=== PATIENT | male | born 1965 | race Caucasian/White ===

== ENCOUNTER 2018-03-01 14:15 | Observation (INO) ==
--- NOTE | 2018-03-01 14:22 | Emergency Department Note ---
Disposition Clinical Impression: Generalized weakness, Chronic kidney disease, stage III (moderate), Hyperkalemia Disposition: Admitted As Inpatient Condition: Fair Referrals: Wilfredo Vicente, [employer] [Advanced Practice Nurse] - Forms: ED Satisfaction Letter Weakness HPI - General Chief complaint: ED Weakness Stated complaint: weakness and tingling all over Time Seen by Provider: 03/01/18 14:25 Source: patient, family Mode of arrival: private vehicle Limitations: no limitations Nursing Notes Reviewed: Yes Vital Signs Reviewed: Yes - History of Present Illness HPI Narrative: Patient reports that he has been having some intermittent episodes of weakness, shaking and tingling over the course of 2-3 weeks. The tingling involves his face, hands and feet bilaterally. The symptoms have been worse since yesterday he is noted he has had or difficulty getting up and walking around today. He denies any localized weakness. He has had some shortness of breath and a cough. States has occasional wheezing and the cough is nonproductive. Denies any fevers, chest pain or abnormal palpitations. He volunteers he does have atrial fibrillation and his heart rate is irregular. He has had a little more swelling of his legs and states he has some "fluid buildup". He does have history of CHF as well as chronic kidney disease. He did sustain a small cut to his left forefoot about a week ago area he has been bandaging this but has not been able to see the area. He states he has neuropathy. He has not had increased swelling or redness or significant discharge. He denies any urinary frequency or dysuria. He denies abdominal pain, nausea, vomiting or diarrhea. States had constipation "a couple weeks ago". He denies a recent change in his medicines. He states he is diabetic and his blood sugars have been running "high". His blood sugars have been to the 500s in the last 2-3 days but he states his blood sugar was 303 at noon today. Pt Subjective Complaint: generalized weakness/fatigue, paresthesias Onset (ago): week(s) Duration: intermittent Location: generalized Migration: none Pain Severity: none If pain, quality: tingling Improves with: none Worsens with: exertion Associated symptoms: Reports: shortness of breath. Denies: chest pain, confusion, dark stools, diaphoresis, dysuria, easy bruising, fever/chills, headaches, loss of appetite, nausea/vomiting, myalgias, rash, syncope - Related Data Home Medications Medication Instructions Recorded Confirmed Ferrous Sulfate 325 mg PO BID 07/11/15 03/01/18 Lisinopril [Zestril] 20 mg PO DAILY 09/04/15 03/01/18 Aspirin [Lo-Dose Aspirin EC] 81 mg PO QAM 07/11/16 03/01/18 Atorvastatin [Lipitor] 40 mg PO HS 07/11/16 03/01/18 Insulin ASPART [Novolog Flexpen] 20 unit SQ TIDWM 07/11/16 03/01/18 Albuterol Sulfate [Ventolin Hfa] 2 puff IH Q4H PRN 10/07/16 03/01/18 Metoprolol XL (24 HR) Succ [Toprol 25 mg PO BID 08/22/17 03/01/18 Xl] Rivaroxaban [Xarelto] 15 mg PO DAILY 08/22/17 03/01/18 Furosemide [Lasix] 40 mg PO BID 08/23/17 03/01/18 Cetirizine HCl [Zyrtec] 10 mg PO DAILY 09/07/17 03/01/18 Insulin Glargine,Hum.rec.anlog 10 unit SQ QAM 03/01/18 03/01/18 [Basaglar Kwikpen U-100] Previous Rx's Medication Instructions Recorded Diltiazem CD (24hr) [Cardizem CD] 120 mg PO DAILY #30 tab 07/07/17 Isosorbide MONOnitrate (24 HR) 30 mg PO DAILY #30 tab 07/07/17 [Imdur] Polyethylene Glycol 3350 [MiraLAX] 17 gm PO DAILY #30 powd.pack 08/26/17 Allergies Allergy/AdvReac Type Severity Reaction Status Date / Time No Known Allergies Allergy Verified 03/01/18 14:16 All systems ED: reviewed and negative except as stated. Past Medical History - Past Medical History Attestation: Yes The following information was validated with the patient. Source: patient, old records reviewed, obtained from family, nursing notes reviewed Medical history: Reports: atrial fibrillation, CHF, COPD, coronary artery disease, CVA, diabetes, GERD, hyperlipidemia, hypertension, myocardial infarction, renal disease, other (Morbid obesity) Surgical history: Reports: coronary bypass (CABG), orthopedic, other ( Osteomyelitis with toe amputation), other Psychiatric history: Reports: anxiety, depression - Social History Smoking Status: Former smoker Smokeless Tobacco Status: Yes Alcohol use: Reports: none Drug use: Reports: none Physical Exam - General Limitations: physical limitation General appearance: alert, in no apparent distress - Head Head exam: atraumatic, normocephalic, normal inspection - Eye Eye exam: Present: normal appearance, PERRL, EOMI. Absent: scleral icterus, conjunctival injection, nystagmus - ENT ENT exam: normal exam, normal oropharynx, mucous membranes moist - Neck Neck exam: Present: normal inspection, full ROM, trachea midline - Chest Chest inspection: Present: normal inspection, symmetric chest wall rise - Respiratory Respiratory exam: Present: normal lung sounds bilaterally, wheezes, other ( Diminished breath sounds). Absent: respiratory distress, accessory muscle use, prolonged expiratory phase - Cardiovascular Cardiovascular exam: Present: bradycardia, irregular rhythm, normal heart sounds. Absent: JVD - Abdominal Exam Abdominal exam: Present: soft, Non-Tender, normal bowel sounds. Absent: tenderness, distention, guarding, rebound, rigidity - Extremities Exam Extremities exam: Present: full ROM, normal capillary refill, pedal edema, other (Left foot has a less than 1 cm superficial wound without any secondary inflammation, tenderness or swelling.). Absent: tenderness, calf tenderness - Expanded Lower Extremity Exam Neurovascular/Tendon exam: Present: normal capillary refill. Absent: motor deficit, sensory deficit, tendon deficit Gait: observed and normal - Back Exam Back exam: Present: normal inspection, full ROM. Absent: tenderness, CVA tenderness (R), CVA tenderness (L), vertebral tenderness - Neurological Exam Neurological exam: Present: alert, oriented X3, CN II-XII intact, normal gait. Absent: motor sensory deficit - Psychiatric Psychiatric exam: Present: normal affect, normal mood - Skin Skin exam: Present: warm, dry, intact, normal color. Absent: rash, cyanosis, diaphoresis, erythema, pallor Course Course Narrative: 1535: With the patient's renal insufficiency and hyperkalemia, IV fluids been initiated, Kayexalate ordered orally as well as D50, insulin and sodium bicarbonate IV. A page has been placed to Dr. Mcdaniel to see if he would feel comfortable observing the patient this facility or if you have recommend transfer to tertiary care with the possibility for nephrology or other consultation. 1550: Care has been discussed with Dr. Mcdaniel. He would like a repeat potassium drawn a couple hours and will observe him at this facility if it has decreased to under 6.5. He acknowledges that the patient does have chronic renal insufficiency with a creatinine of 2-2.5. He will likely not need acute nephrology consultation unless his potassium is not improving. The patient has been written for a repeat basic metabolic panel at 6 PM. He understands his ultimate disposition will depend on the results of the that testing. 1845: The patient's repeat potassium is down. Orders have been coordinated for his admission to this facility. Vital Signs Temperature 97.9 F 03/01/18 14:22 Pulse Rate 51 03/01/18 14:22 Respiratory Rate 22 03/01/18 14:22 Blood Pressure 159/64 03/01/18 14:22 O2 Sat by Pulse Oximetry 98 03/01/18 14:22 Temperature 97.9 F 03/01/18 14:22 Pulse Rate 58 03/01/18 18:19 Respiratory Rate 18 03/01/18 18:19 Blood Pressure 168/56 03/01/18 18:19 O2 Sat by Pulse Oximetry 97 03/01/18 18:19 Oxygen Delivery Oxygen Delivery Nasal Cannula Weakness - Differential Diagnosis Differential Diagnosis: Likely: anemia, sepsis/infection, dehydration, medication effect, metabolic - Medical Records Medical records reviewed: Yes I reviewed the patient's medical records. Patient admitted August 22 to September 04 with the following hospital course: Hospital course: Mr. Hughes is a 51 year old male He has a PMH of CHFpEF, CKD III, RUFINO on CPAP, Afib on Xarelto, DM, CAD, Obesity He was admitted 13 days ago for management of sepsis, MSSA bacetremia, Left 4th toe necrosis secondary to MSSA infection on his diabetic ulcer Today, he is POD 11 Patient reported that he had an ulcer on the bottom of his left foot being treated in wound care clinic. He had a cast on his foot for this ulcer, but missed a couple of appointments and left the cast on longer than intended. The cast came off earlier this week per the patient. The day prior to admission he noticed his fourth toe on his left foot was purple, and he thought it was bruised. The day of admission, the foot started draining a foul-smelling purulent drainage and had black necrotic tissue as well. He also reported of fever/chills but denies any pain in his left foot In the ER at [facility], he was found to have leukocytosis (WBC 17.5) and febrile; temperature of 101.3. Foot x-ray showed soft tissue gas about the fourth distal phalanx, with questionable erosive changes of the fourth metatarsal head. He was admitted to [facility] medical floor for further management and evaluation. During patients hospital stay, Gen. surgery was consulted and proceeded with urgent amputation of fourth toe as well as metatarsal head area. During surgery patient was found to have a necrotic left fourth toe in addition to osteomyelitis in the left metatarsal. As a result, the left fourth toe was amputated and the metatarsal head (osteomyelitis) was resected. Patient was continued with IV antibiotic therapy and was later transitioned to oral Levaquin Today seen at bedside,He has no new complains SNF has been recommended and he now has been cleared for discharge His sepsis resolved as he has been afebrile for >7 days, his leukocytosis is persistent and fluctuates, but patient has no peripheral stigmata of infection His repeat blood culture 09/02 is preliminary negative He was followed by surgery and will be following with Dr. Rodarte as out-patient He needs at least 10 more days of doxycycline po bid His kidney function has been ay baseline and his DM is better controlled His other chronic medical conditions are stable - Lab Data Lab results reviewed: Yes I reviewed the patient's lab results. Result diagrams: 03/01/18 14:48 03/01/18 18:14 Lab Results 03/01/18 03/01/18 03/01/18 Range/Units 14:30 14:48 14:48 WBC 13.0 H (4.3-11.1) K/mcL RBC 4.87 (4.19-5.50) M/mcL Hgb 12.2 L (12.9-16.9) g/dL Hct 38.6 (37.5-50.1) % MCV 79.3 L (83.0-100.0) fL MCH 25.1 L (28.0-33.3) pg MCHC 31.6 (31.6-35.5) g/dL RDW 15.3 H (11.5-14.5) % Plt Count 261 (140-400) K/mcL MPV 9.8 (9.4-12.4) fL Immature Gran % 0.5 (0-4) % Seg Neutrophils % 81.5 % Lymphocytes % 11.3 % Monocytes % 5.6 % Eosinophils % 0.8 % Basophils % 0.3 % Neutrophils # 10.6 H (1.6-8.9) K/mcL Lymphocytes # 1.5 (0.6-4.6) K/mcL Monocytes # 0.7 (0.0-1.3) K/mcL Eosinophils # 0.1 (0.0-0.6) K/mcL Basophils # 0.0 (0.0-0.2) K/mcL Sodium 131 L (136-145) mEq/L Potassium 7.0 H* (3.5-5.1) mEq/L Chloride 98 (98-107) mEq/L Carbon Dioxide 24 (23-29) mEq/L BUN 64 H (6-20) mg/dL Creatinine 3.06 H (0.70-1.30) mg/dL Est GFR ( Amer) 26 L (> 60) Est GFR (Non-Af Amer) 21 L (> 60) BUN/Creatinine Ratio 21 (6-26) Glucose 309 H (70-105) mg/dL POC Glucose 286 H (68-89) mg/dL Calculated Osmolality 302 H (280-300) Calcium 9.0 (8.6-10.3) mg/dL Troponin I 0.03 (< 0.04) ng/mL B-Natriuretic Peptide (Less than 100) pg/mL 03/01/18 03/01/18 Range/Units 14:48 18:14 WBC (4.3-11.1) K/mcL RBC (4.19-5.50) M/mcL Hgb (12.9-16.9) g/dL Hct (37.5-50.1) % MCV (83.0-100.0) fL MCH (28.0-33.3) pg MCHC (31.6-35.5) g/dL RDW (11.5-14.5) % Plt Count (140-400) K/mcL MPV (9.4-12.4) fL Immature Gran % (0-4) % Seg Neutrophils % % Lymphocytes % % Monocytes % % Eosinophils % % Basophils % % Neutrophils # (1.6-8.9) K/mcL Lymphocytes # (0.6-4.6) K/mcL Monocytes # (0.0-1.3) K/mcL Eosinophils # (0.0-0.6) K/mcL Basophils # (0.0-0.2) K/mcL Sodium 135 L (136-145) mEq/L Potassium 5.2 H D (3.5-5.1) mEq/L Chloride 101 (98-107) mEq/L Carbon Dioxide 24 (23-29) mEq/L BUN 63 H (6-20) mg/dL Creatinine 2.81 H (0.70-1.30) mg/dL Est GFR ( Amer) 29 L (> 60) Est GFR (Non-Af Amer) 24 L (> 60) BUN/Creatinine Ratio 22 (6-26) Glucose 280 H (70-105) mg/dL POC Glucose (68-89) mg/dL Calculated Osmolality 308 H (280-300) Calcium 8.8 (8.6-10.3) mg/dL Troponin I (< 0.04) ng/mL B-Natriuretic Peptide 41 (Less than 100) pg/mL - Radiology Data Radiology results reviewed: Yes I reviewed the patient's radiology results. Single view chest x-ray is performed. This does not demonstrate evidence for infiltrate, effusion, pneumothorax, foreign body or heart failure. The cardiac silhouette is enlarged. I do not see abnormality to the osseous structures of the chest. This is on my interpretation. - EKG Data EKG attestation: Yes I reviewed and interpreted this EKG. EKG shows normal: axis, intervals, QRS complexes, ST-T waves Rate: bradycardia (49) Rhythm: A.Fib [place]/QRS: IVCD Interpretation: no acute changes, other (Intrafibrillation with slow ventricular response.) Critical Care Time Critical Care Time: Yes Total Critical Care Time: 65 Attestation: As this patient did present with signs and symptoms of potential life- threatening illness requiring my urgent intervention, total critical care time in this patient's care has been 65 minutes, not withstanding separately reportable procedures.
[2018-03-01 14:53] LABS: Basophils % 0.3 %; Eosinophils # 0.1 K/mcL (0.0-0.6); Eosinophils % 0.8 %; Hematocrit 38.6 % (37.5-50.1); Hemoglobin 12.2 g/dL (12.9-16.9); Immature Granulocytes % 0.5 % (0-4); Lymphocytes # 1.5 K/mcL (0.6-4.6); Lymphocytes % 11.3 %; Mean Corpuscular HGB Conc 31.6 g/dL (31.6-35.5); Mean Corpuscular Hemoglobin 25.1 pg (28.0-33.3); Mean Corpuscular Volume 79.3 fL (83.0-100.0); Mean Platelet Volume 9.8 fL (9.4-12.4); Monocytes # 0.7 K/mcL (0.0-1.3); Monocytes % 5.6 %; Neutrophils # 10.6 K/mcL (1.6-8.9); Platelet Count 261 K/mcL (140-400); Red Blood Count 4.87 M/mcL (4.19-5.50); Red Cell Distribution Width 15.3 % (11.5-14.5); Segmented Neutrophils % 81.5 %
--- NOTE | 2018-03-01 14:59 | Electrocardiograph Report ---
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
[2018-03-01 15:20] LABS: Troponin I 0.03 ng/mL (< 0.04)
[2018-03-01] MEDS ORDERED: *HR* Dextrose 50 % in Water (Syg) 50 ML SYRINGE IVP ONE (15:31)
[2018-03-01] MEDS ORDERED: 0.9 % Sodium Chloride 1,000 ML IVC ONE (15:31)
[2018-03-01] MEDS ORDERED: 0.9 % Sodium Chloride 1,000 ML IVC SCH (18:00)
[2018-03-01 18:40] LABS: Calcium 8.8 mg/dL (8.6-10.3); Potassium 5.2 mEq/L (3.5-5.1)
[2018-03-01] MEDS ORDERED: *HR* Dextrose 50 % in Water (Syg) 50 ML SYRINGE IVP PRN (20:31)
[2018-03-01] MEDS ORDERED: D5% in Water 1,000 ML IVC PRN (20:31)
[2018-03-01] MEDS ORDERED: Dextrose Gel 15 GM PO PRN ×2 (20:31)
[2018-03-01] MEDS ORDERED: Naloxone 0.4 MG/ML INJ IVP PRN (20:31)
[2018-03-01] MEDS ORDERED: Metoprolol XL (24 HR) Succ 50 MG TAB.ER.24H PO SCH (21:00)
[2018-03-01] MEDS: 0.9 % Sodium Chloride 1,000 ML IVC SCH (21:48)
[2018-03-01] MEDS: Furosemide 40 MG TABLET PO SCH (21:57)
[2018-03-01] MEDS: Ipratropium/Albuterol Neb 3 ML IH SCH (22:43)
[2018-03-02] MEDS: Ipratropium/Albuterol Neb 3 ML IH SCH ×2 (04:07→10:01)
[2018-03-02 04:35] LABS: Calcium 8.9 mg/dL (8.6-10.3); Potassium 4.8 mEq/L (3.5-5.1)
[2018-03-02] MEDS: 0.9 % Sodium Chloride 1,000 ML IVC SCH (05:14)
[2018-03-02] MEDS ORDERED: Loratadine 10 MG TABLET PO SCH (09:00)
[2018-03-02] MEDS: Insulin DETEMIR 100 UNIT/ML X5UNITS SQ SCH (09:13)
[2018-03-02] MEDS: Insulin LISPRO 300 UNITS/3 ML VIAL SQ SCH ×6 (09:13→16:47)
[2018-03-02] MEDS: Metoprolol XL (24 HR) Succ 25 MG TAB.ER.24H PO SCH ×2 (09:14→21:31)
[2018-03-02] MEDS: Isosorbide MONOnitrate (24 HR) 30 MG TAB.ER.24H PO SCH (09:14)
[2018-03-02] MEDS: Furosemide 40 MG TABLET PO SCH (09:14)
[2018-03-02] MEDS: Aspirin Enteric Coated 81 MG Tablet PO SCH (09:14)
[2018-03-02] MEDS: Diltiazem CD (24hr) 120 MG CAPSULE PO SCH (09:14)
[2018-03-02] MEDS: Lisinopril 20 MG TABLET PO SCH (09:14)
--- NOTE | 2018-03-02 12:29 | Internal Med History&Physical ---
Date of Encounter: 03/02/18 Time of Encounter: 11:35 Assessment and Plan (1) Generalized weakness Current visit: Yes Status: Acute Suspect multifactorial etiology. Will order PT and OT evaluation. (2) Hyperkalemia Current visit: Yes Status: Acute Now resolved after treatment in emergency room. Continue to monitor labs. (3) Anemia Current visit: Yes Status: Acute We will order anemia testing in a.m. Qualifiers: Anemia type: unspecified type Qualified Code(s): D64.9 - Anemia, unspecified (4) Acute kidney injury superimposed on CKD Current visit: No Status: Acute Will give IV fluids and hold Lasix. Monitor renal indices. (5) Atrial fibrillation Current visit: No Status: Chronic Continue Xarelto. Qualifiers: Atrial fibrillation type: paroxysmal Qualified Code(s): I48.0 - Paroxysmal atrial fibrillation (6) Type 2 diabetes mellitus Current visit: No Status: Acute Hemoglobin A1c was 7.0% on 07/05/2017. We will recheck in a.m. Continue Levemir/Lantus and Humalog SSI. 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 We will recheck in a.m. (8) Obstructive sleep apnea Current visit: No Status: Chronic Continue CPAP at bedtime. Internal Medicine - H&P: HPI Chief complaint: Weakness Admitted From: Emergency Dept Plans for Post Hospital Care: Home History of present illness: Mr. Hughes is a 52 year old male who came to emergency room reporting a two-week history of intermittent weakness and tingling sensation in his arms and legs. It had lasted generally only a few minutes on previous occurrences but lasted at least 30 minutes the day of admission. He was evaluated in emergency room and found to have acute on chronic renal failure with hyperkalemia. He was admitted to [facility] for ongoing care needs. He denies history of large distribution strokes or seizures. He has right foot drop but denies other diagnosed neurologic problems. He has used a walker for ambulation for approximately 3 months following his most recent toe amputation and states he has not had a fall. Past Med Surg Social Fam HX - Past Medical History Medical history: atrial fibrillation, CHF, COPD, coronary artery disease, CVA, diabetes, GERD, hyperlipidemia, hypertension, myocardial infarction, renal disease, other Psychiatric history: anxiety, depression - Past Surgical History Surgical History: coronary bypass (CABG), orthopedic, other, other - Social History Smoking Status: Former smoker Smokeless Tobacco Status: Yes Alcohol use: none Drug use: none - Family History Mother Family Member Ethnicity: Non- Living Status: Hx Family Cardiac Disorders: Yes (HD, HTN, CHF) Hx Family Respiratory Disorders: Yes (COPD) Father Family Member Ethnicity: Non- Living Status: Hx Family Cardiac Disorders: Yes (HD, HTN, ND) Brother Family Member Ethnicity: Non- Living Status: Still Living Hx Family Cardiac Disorders: Yes (HD) Hx Family Respiratory Disorders: Yes (COPD) Sister Family Member Ethnicity: Non- Living Status: Still Living Hx Family Endocrine Disorder: Yes (T2DM) Internal Medicine - H&P: Meds Ferrous Sulfate 325 mg PO BID 07/11/15 [History] Lisinopril [Zestril] 20 mg PO DAILY 09/04/15 [History] Aspirin [Lo-Dose Aspirin EC] 81 mg PO QAM 07/11/16 [History] Atorvastatin [Lipitor] 40 mg PO HS 07/11/16 [History] Insulin ASPART [Novolog Flexpen] 20 unit SQ TIDWM 07/11/16 [History] Albuterol Sulfate [Ventolin Hfa] 2 puff IH Q4H PRN 10/07/16 [History] Diltiazem CD (24hr) [Cardizem CD] 120 mg PO DAILY #30 tab 07/07/17 [Rx] Isosorbide MONOnitrate (24 HR) [Imdur] 30 mg PO DAILY #30 tab 07/07/17 [Rx] Metoprolol XL (24 HR) Succ [Toprol Xl] 25 mg PO BID 08/22/17 [History] Rivaroxaban [Xarelto] 15 mg PO DAILY 08/22/17 [History] Furosemide [Lasix] 40 mg PO BID 08/23/17 [History] Polyethylene Glycol 3350 [MiraLAX] 17 gm PO DAILY #30 powd.pack 08/26/17 [Rx] Cetirizine HCl [Zyrtec] 10 mg PO DAILY 09/07/17 [History] Insulin Glargine,Hum.rec.anlog [Basaglar Elisabetikpen U-100] 10 unit SQ QAM 03/01/18 [History] 3 Allergy/AdvReac Type Severity Reaction Status Date / Time No Known Allergies Allergy Verified 03/01/18 14:16 All Systems PM: A 10-system review of systems was performed and is negative for pertinent findings except as documented above in the HPI. Review of systems: Gen.: His weight has decreased from 141.747 kg October 2014 to 136.078 kg on admission now. Cardiovascular: He has history of hypertension and known ASHD with 4 vessel CABG approximately 2008. He had a Regadenoson EST September 2013 which showed LVEF of 60% and no evidence of TID. Perfusion image was positive for a small mildly intense reversible inferior defect which was treated medically. Echocardiogram 07/05/2017 showed LVEF of 60-65% with indeterminate LV diastolic function and no significant valvular abnormality. The interventricular septum and posterior wall thickness measurements were 1.35 and 1.30 cm respectively. He was found to have atrial fibrillation on June 2017 [facility] hospitalization. He was placed on Xarelto. There is no history of DVT or pulmonary embolus Respiratory: He smoked from age [age] up to 1 pack per day. He does not have known chronic lung disease. He has RUFINO and uses CPAP at bedtime. GI: He has occasional GERD. 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 He denies other kidney bladder prostate disorders Neurologic: As per history of present illness Endocrine: He was diagnosed with DM 2 at age 20. He has hyperlipidemia but no known thyroid disease Hematology/oncology: He has chronic anemia. He denies internal malignancies or blood disorders Psychiatric: He denies anxiety depression or other mental health issues [place] skeletal: He has DJD and gout. He had right hip fracture with replacement 2005. He has had surgical amputation of the fourth toes on both feet. The right fourth toe and adjacent metatarsal head had osteomyelitis which was cured by the surgical resection. - Constitutional Vitals: Temp Pulse Resp BP Pulse Ox 98.4 F 76 29 131/56 92 03/02/18 11:42 03/02/18 11:42 03/02/18 11:42 03/02/18 11:42 03/02/18 10:01 Exam: Gen.: He is a well-developed obese male lying in bed who appears in no severe distress HEENT: Head is atraumatic and normocephalic. Eyes: EOMI. There is no scleral icterus. Mouth: Mucosa is moist. Neck: Supple and nontender. There is no thyromegaly or adenopathy noted. Heart: Regular without murmurs gallops or ectopics Lungs: No wheezes or crackles are heard. Abdomen: Soft and nontender. No masses or guarding are noted. Extremities: He has surgically absent fourth toes bilaterally. The surgical incisions are well-healed. He has a small puncture type wound on the mid line left foot near the third metatarsal head. He has a fissure of the lateral right foot on the lateral/plantar area which shows no drainage or significant erythema. He has 1+ edema of the anterior soto bilaterally. Neurologic: Mental status: He is talkative and a good historian. Cranial nerves : Smile is symmetric. Forehead wrinkles bilaterally. Tongue protrudes midline. EOMI. Motor: There is no pronator drift. Plantar flexion strength at the ankles is symmetric bilaterally. He has right footdrop and cannot dorsiflex the right foot. Left foot dorsiflexes with normal strength. Cerebellar: Finger to nose is intact bilaterally. Skin: Warm and dry Internal Med - H&P Results - Labs CBC & Chem 7: 03/01/18 14:48 03/02/18 03:40 Labs: BMP 03/02/18 03:40 Sodium 137 Potassium 4.8 Chloride 102 Carbon Dioxide 26 BUN 55 H Creatinine 2.33 H Glucose 216 H Calcium 8.9
[2018-03-02] MEDS: *HR* Rivaroxaban 15 MG TABLET PO SCH (16:46)
[2018-03-03] MEDS: Albuterol 2.5 MG/3 ML NEBULIZER IH PRN (05:51)
[2018-03-03 06:34] LABS: Basophils % 0.2 %; Eosinophils # 0.2 K/mcL (0.0-0.6); Eosinophils % 1.1 %; Hematocrit 36.7 % (37.5-50.1); Hemoglobin 11.3 g/dL (12.9-16.9); Immature Granulocytes % 0.5 % (0-4); Lymphocytes # 0.9 K/mcL (0.6-4.6); Lymphocytes % 5.2 %; Mean Corpuscular HGB Conc 30.8 g/dL (31.6-35.5); Mean Corpuscular Hemoglobin 24.8 pg (28.0-33.3); Mean Corpuscular Volume 80.5 fL (83.0-100.0); Mean Platelet Volume 10.3 fL (9.4-12.4); Monocytes # 1.3 K/mcL (0.0-1.3); Monocytes % 7.2 %; Platelet Count 222 K/mcL (140-400); Red Blood Count 4.56 M/mcL (4.19-5.50); Red Cell Distribution Width 15.5 % (11.5-14.5); Segmented Neutrophils % 85.8 %
[2018-03-03 06:43] LABS: Neutrophils # 15.4 K/mcL (1.6-8.9)
[2018-03-03 07:03] LABS: Albumin 3.6 g/dL (3.5-5.7); Albumin/Globulin Ratio 1.1 (1.1-2.2); Bilirubin,Total 0.9 mg/dL (0.3-1.0); Calcium 8.8 mg/dL (8.6-10.3); Globulin 3.4 g/dL (2.4-3.5); Magnesium 1.8 mg/dL (1.6-2.6); Potassium 5.2 mEq/L (3.5-5.1)
[2018-03-03 07:09] LABS: Bilirubin,Urine Negative (Negative); Blood,Urine Trace-intact (Negative); Clarity,Urine Clear (Clear); Color,Urine Yellow (Yellow); Glucose,Urine (UA) 500 mg/dL (Normal); Ketones,Urine Negative (Negative); Leukocyte Esterase,Urine Negative (Negative); Nitrite,Urine Negative (Negative); PH,Urine 5.5 pH Units (5.0-8.0); Protein,Urine Trace mg/dL (Neg-Trace); Urobilinogen,Urine Normal (Normal)
[2018-03-03] MEDS: Aspirin Enteric Coated 81 MG Tablet PO SCH (08:07)
[2018-03-03] MEDS: Isosorbide MONOnitrate (24 HR) 30 MG TAB.ER.24H PO SCH (08:07)
[2018-03-03] MEDS: Diltiazem CD (24hr) 120 MG CAPSULE PO SCH (08:07)
[2018-03-03] MEDS: Metoprolol XL (24 HR) Succ 25 MG TAB.ER.24H PO SCH ×2 (08:08→20:57)
[2018-03-03] MEDS: Lisinopril 20 MG TABLET PO SCH (08:08)
[2018-03-03] MEDS: Insulin LISPRO 300 UNITS/3 ML VIAL SQ SCH ×6 (08:09→16:25)
[2018-03-03 08:18] LABS: RBC,Urine 0-3 per hpf (0-3); Squamous Epithelial Cell,Urine Few per lpf (None-Few); WBC,Urine 0-3 per hpf (0-3)
[2018-03-03] MEDS: Insulin DETEMIR 100 UNIT/ML X5UNITS SQ SCH ×2 (09:11→20:58)
[2018-03-03 09:40] LABS: Folate 18.4 ng/mL (3.0-16.0)
[2018-03-03 10:06] LABS: Estimated Average Glucose 318 mg/dl; Hemoglobin A1C 12.7 %
--- NOTE | 2018-03-03 11:19 | Internal Med Progress Note ---
Date of Encounter: 03/03/18 Time of Encounter: 11:10 - Assessment and plan (1) Generalized weakness Current Visit: Yes Status: Acute Assessment and plan: March 03. Continue PT and OT intervention. (2) Hyperkalemia Current Visit: Yes Status: Acute Assessment and plan: March 03. Slightly elevated again. Will discontinue lisinopril and monitor labs. (3) Anemia Current Visit: Yes Status: Acute Assessment and plan: March 03. Anemia testing showed iron 42, transferrin saturation 15%, transferrin 204, ferritin 31, B12 250, and folate 18.4. Will give trial of ferrous sulfate with vitamin C. Suspect primarily due to chronic kidney disease. Qualifiers: Anemia type: unspecified type Qualified Code(s): D64.9 - Anemia, unspecified (4) Acute kidney injury superimposed on CKD Current Visit: No Status: Acute Assessment and plan: March 03. Creatinine improved to 2.23. Continue present regimen. (5) Atrial fibrillation Current Visit: No Status: Chronic Assessment and plan: March 03. Continue Xarelto. Qualifiers: Atrial fibrillation type: paroxysmal Qualified Code(s): I48.0 - Paroxysmal atrial fibrillation (6) Type 2 diabetes mellitus Current Visit: No Status: Acute Assessment and plan: March 03. Hemoglobin A1c pending. Will increase Levemir to 10 units twice a day. Continue Accu-Cheks with SSI. 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 Phosphorus level normal at 3.3. (8) Obstructive sleep apnea Current Visit: No Status: Chronic Assessment and plan: March 03. Continue CPAP (9) Hypertension Current Visit: Yes Status: Chronic Assessment and plan: March 03. We will discontinue lisinopril because of hyperkalemia. We will start clonidine and continue diltiazem and metoprolol. Qualifiers: Hypertension type: essential hypertension Qualified Code(s): I10 - Essential (primary) hypertension - Subjective Interval history: March 03. He reports he feels he is getting the "flu". He denies vomiting or diarrhea but states he has slight dyspnea with occasional cough. He has myalgias. - Constitutional Vitals: Temp Pulse Resp BP Pulse Ox 99.2 F 66 24 135/71 96 03/03/18 10:16 03/03/18 10:16 03/03/18 10:16 03/03/18 10:16 03/03/18 10:16 Exam: He is sitting on the side of bed and appears to be resting comfortably. He is not dyspneic at rest. Lungs are completely clear. His affect is bright and cheerful. I reviewed his medications and lab results. Internal Medicine: Result - Labs CBC & Chem 7: 03/03/18 05:22 03/03/18 05:22 Labs: Short CBC 03/03/18 Range/Units 05:22 WBC 18.0 H (4.3-11.1) K/mcL Hgb 11.3 L (12.9-16.9) g/dL Hct 36.7 L (37.5-50.1) % Plt Count 222 (140-400) K/mcL Neutrophils # 15.4 H (1.6-8.9) K/mcL BMP 03/03/18 05:22 Sodium 128 L Potassium 5.2 H Chloride 100 Carbon Dioxide 19 L BUN 52 H Creatinine 2.23 H Glucose 333 H Calcium 8.8 Liver Function 03/03/18 Range/Units 05:22 Total Bilirubin 0.9 (0.3-1.0) mg/dL AST 14 (13-39) Units/L ALT 18 (7-52) Units/L Alkaline Phosphatase 68 (34-104) Units/L Albumin 3.6 (3.5-5.7) g/dL Urine 03/03/18 Range/Units 05:15 Urine Color Yellow (Yellow) Urine Clarity Clear (Clear) Urine pH 5.5 (5.0-8.0) pH Units Ur Specific [place] 1.010 (1.010-1.025) Urine Protein Trace (Neg-Trace) mg/dL Urine Glucose (UA) 500 H (Normal) mg/dL - VTE Documentation of Mechanical Device: Graduated compression elastic hosiery Consult Discharge Plan - Plan Referrals: Raisa Warner, CISTERN ROOM WORKING SUPERVISOR [Primary Care Provider] - 1 week
[2018-03-03] MEDS: cloNIDine HCl 0.1 MG TABLET PO SCH ×2 (15:02→21:04)
[2018-03-03] MEDS: Acetaminophen 325 MG TABLET PO PRN (16:23)
[2018-03-03] MEDS: *HR* Rivaroxaban 15 MG TABLET PO SCH (16:23)
[2018-03-04] MEDS ORDERED: Ondansetron 4 MG/2 ML VIAL IVP PRN (04:25)
[2018-03-04] MEDS: Acetaminophen 325 MG TABLET PO PRN (04:29)
[2018-03-04 06:53] LABS: Basophils % 0.3 %; Eosinophils # 0.1 K/mcL (0.0-0.6); Eosinophils % 0.6 %; Hematocrit 33.2 % (37.5-50.1); Hemoglobin 10.5 g/dL (12.9-16.9); Immature Granulocytes % 0.6 % (0-4); Lymphocytes # 0.5 K/mcL (0.6-4.6); Lymphocytes % 3.7 %; Mean Corpuscular HGB Conc 31.6 g/dL (31.6-35.5); Mean Corpuscular Hemoglobin 25.2 pg (28.0-33.3); Mean Corpuscular Volume 79.8 fL (83.0-100.0); Mean Platelet Volume 9.8 fL (9.4-12.4); Monocytes % 7.4 %; Platelet Count 178 K/mcL (140-400); Red Blood Count 4.16 M/mcL (4.19-5.50); Red Cell Distribution Width 15.5 % (11.5-14.5); Segmented Neutrophils % 87.4 %
[2018-03-04 07:06] LABS: Neutrophils # 12.3 K/mcL (1.6-8.9)
[2018-03-04 07:10] LABS: Calcium 8.6 mg/dL (8.6-10.3); Potassium 5.3 mEq/L (3.5-5.1)
[2018-03-04] MEDS: Aspirin Enteric Coated 81 MG Tablet PO SCH (08:23)
[2018-03-04] MEDS: Isosorbide MONOnitrate (24 HR) 30 MG TAB.ER.24H PO SCH (08:23)
[2018-03-04] MEDS: Insulin LISPRO 300 UNITS/3 ML VIAL SQ SCH ×6 (08:24→20:19)
[2018-03-04] MEDS: Insulin DETEMIR 100 UNIT/ML X5UNITS SQ SCH ×2 (09:42→21:01)
--- NOTE | 2018-03-04 10:15 | Internal Med Progress Note ---
Date of Encounter: 03/04/18 Time of Encounter: 10:05 - Assessment and plan (1) Generalized weakness Current Visit: Yes Status: Acute Assessment and plan: March 03. Continue PT and OT intervention. (2) Hyperkalemia Current Visit: Yes Status: Acute Assessment and plan: March 03. Slightly elevated again. Will discontinue lisinopril and monitor labs. (3) Anemia Current Visit: Yes Status: Acute Assessment and plan: March 03. Anemia testing showed iron 42, transferrin saturation 15%, transferrin 204, ferritin 31, B12 250, and folate 18.4. Will give trial of ferrous sulfate with vitamin C. Suspect primarily due to chronic kidney disease. Qualifiers: Anemia type: unspecified type Qualified Code(s): D64.9 - Anemia, unspecified (4) Acute kidney injury superimposed on CKD Current Visit: No Status: Acute Assessment and plan: March 03. Creatinine improved to 2.23. Continue present regimen. March 04. Creatinine without further improvement. We will discontinue IV fluids. (5) Atrial fibrillation Current Visit: No Status: Chronic Assessment and plan: March 03. Continue Xarelto. Qualifiers: Atrial fibrillation type: paroxysmal Qualified Code(s): I48.0 - Paroxysmal atrial fibrillation (6) Type 2 diabetes mellitus Current Visit: No Status: Acute Assessment and plan: March 03. Hemoglobin A1c pending. Will increase Levemir to 10 units twice a day. Continue Accu-Cheks with SSI. March 04. Hemoglobin A1c significantly elevated at 12.7%. Continue higher dose Levemir and Accu-Cheks with SSI. 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 Continue CPAP (8) Hypertension Current Visit: Yes Status: Chronic Assessment and plan: March 03. We will discontinue lisinopril because of hyperkalemia. We will start clonidine and continue diltiazem and metoprolol. Qualifiers: Hypertension type: essential hypertension Qualified Code(s): I10 - Essential (primary) hypertension - Subjective Interval history: March 03. He reports he feels he is getting the "flu". He denies vomiting or diarrhea but states he has slight dyspnea with occasional cough. He has myalgias. March 04. He has no new complaints. He states he still feels weak but no worse than yesterday. He reports still needing assistance in ambulating to the bathroom. - Constitutional Vitals: Temp Pulse Resp BP Pulse Ox 98.6 F 64 26 112/61 96 03/04/18 06:31 03/04/18 06:31 03/04/18 06:31 03/04/18 06:31 03/04/18 06:31 Exam: He is resting comfortably in bed and appears in no acute distress. He is wearing YUMI hose bilaterally. His affect is bright and cheerful. He does not appear dyspneic. I reviewed his medications and lab results. Internal Medicine: Result - Labs CBC & Chem 7: 03/04/18 06:42 03/04/18 06:42 Labs: Short CBC 03/04/18 Range/Units 06:42 WBC 14.1 H (4.3-11.1) K/mcL Hgb 10.5 L (12.9-16.9) g/dL Hct 33.2 L (37.5-50.1) % Plt Count 178 (140-400) K/mcL Neutrophils # 12.3 H (1.6-8.9) K/mcL BMP 03/04/18 06:42 Sodium 125 L Potassium 5.3 H Chloride 100 Carbon Dioxide 19 L BUN 59 H Creatinine 2.34 H Glucose 217 H Calcium 8.6 - VTE Documentation of Mechanical Device: Graduated compression elastic hosiery Consult Discharge Plan - Plan Referrals: Raisa Warner, COLLEGE COUNSELOR [Primary Care Provider] - 1 week
[2018-03-04] MEDS: Diltiazem CD (24hr) 120 MG CAPSULE PO SCH (11:29)
[2018-03-04] MEDS: cloNIDine HCl 0.1 MG TABLET PO SCH ×3 (11:30→21:01)
[2018-03-04] MEDS: Metoprolol XL (24 HR) Succ 25 MG TAB.ER.24H PO SCH ×2 (11:32→21:01)
[2018-03-04] MEDS: *HR* Rivaroxaban 15 MG TABLET PO SCH (16:41)
[2018-03-04] MEDS: Albuterol 2.5 MG/3 ML NEBULIZER IH PRN (21:43)
[2018-03-05] MEDS ORDERED: Ascorbic Acid 500 MG TABLET PO SCH (06:30)
[2018-03-05 06:53] VITALS: BP 135/70
[2018-03-05] MEDS: Insulin LISPRO 300 UNITS/3 ML VIAL SQ SCH ×2 (08:43)
[2018-03-05] MEDS: cloNIDine HCl 0.1 MG TABLET PO SCH (08:44)
[2018-03-05] MEDS: Metoprolol XL (24 HR) Succ 25 MG TAB.ER.24H PO SCH (08:44)
[2018-03-05] MEDS: Aspirin Enteric Coated 81 MG Tablet PO SCH (08:44)
[2018-03-05] MEDS: Isosorbide MONOnitrate (24 HR) 30 MG TAB.ER.24H PO SCH (08:44)
[2018-03-05] MEDS: Diltiazem CD (24hr) 120 MG CAPSULE PO SCH (08:45)
--- NOTE | 2018-03-05 09:53 | Discharge Summary ---
Date of Encounter: 03/05/18 Time of Encounter: 09:40 - Discharge Diagnosis (1) Generalized weakness Priority: Primary Status: Acute (2) Hyperkalemia Priority: Secondary Status: Acute (3) Anemia Priority: Secondary Status: Acute Qualifiers: Anemia type: unspecified type Qualified Code(s): D64.9 - Anemia, unspecified (4) Acute kidney injury superimposed on CKD Priority: Secondary Status: Acute (5) Atrial fibrillation Priority: Secondary Status: Chronic Qualifiers: Atrial fibrillation type: paroxysmal Qualified Code(s): I48.0 - Paroxysmal atrial fibrillation (6) Type 2 diabetes mellitus Priority: Secondary Status: Chronic Qualifiers: 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 insulin use: with half-way use Diabetes mellitus complication status: with skin complications Diabetes mellitus complication detail: with foot ulcer Qualified Code(s): E11.621 - Type 2 diabetes mellitus with foot ulcer; L97.509 - Non-pressure chronic ulcer of other part of unspecified foot with unspecified severity; Z79.4 - intermediate project manager ( current) use of insulin (7) Obstructive sleep apnea Priority: Secondary Status: Chronic (8) Hypertension Priority: Secondary Status: Chronic Qualifiers: Hypertension type: essential hypertension Qualified Code(s): I10 - Essential (primary) hypertension Hospital course: Mr. Hughes is a 52 year old male who came to emergency room reporting a two-week history of intermittent weakness and tingling sensation in his arms and legs. It had lasted generally only a few minutes on previous occurrences but lasted at least 30 minutes the day of admission. He was evaluated in emergency room and found to have acute on chronic renal failure with hyperkalemia. He was admitted to [facility] for ongoing care needs. Initial orders were written by the emergency room physician. I saw him on March 02 and performed the history and physical. He had physical therapy and occupational therapy evaluations with ongoing intervention. His weakness improved and he was able to ambulate in the room. Lisinopril was discontinued because of hyperkalemia. Lasix was held during hospitalization and creatinine decreased to 2.34 by day of discharge. He will remain off lisinopril and restart Lasix at a reduced dose at discharge. His PCP can monitor labs. Anemia testing showed iron 42, transferrin saturation 15%, transferrin 204, ferritin 301, B12 250, and folate 18.4. He will continue ferrous sulfate and vitamin C will be given to increase absorption. WBC was stable at 14.1 on day of discharge with 87.4% segs. Review of lab work shows consistent slight elevated WBC since July 2017. His PCP can monitor this. Hemoglobin A1c returned significantly elevated at 12.7%. His insulin dose was increased. On March 05 he was stable for discharge home. He will follow this PCP Dr. Cadet within 1 week. - Time Spent with Patient Total time spent providing and/or coordinating discharge services: - Discharge Medications Prescriptions: Ascorbic Acid [Vitamin C] 500 mg PO 0630 #30 tablet cloNIDine HCl [CloNIDine HCl] 0.1 mg PO TID #90 tablet Ferrous Sulfate 325 mg PO 0630 #30 tablet Home Medications: Aspirin [Lo-Dose Aspirin EC] 81 mg PO QAM 07/11/16 [History] Atorvastatin [Lipitor] 40 mg PO HS 07/11/16 [History] Insulin ASPART [Novolog Flexpen] 20 unit SQ TIDWM 07/11/16 [History] Albuterol Sulfate [Ventolin Hfa] 2 puff IH Q4H PRN 10/07/16 [History] Diltiazem CD (24hr) [Cardizem CD] 120 mg PO DAILY #30 tab 07/07/17 [Rx] Isosorbide MONOnitrate (24 HR) [Imdur] 30 mg PO DAILY #30 tab 07/07/17 [Rx] Metoprolol XL (24 HR) Succ [Toprol Xl] 25 mg PO BID 08/22/17 [History] Rivaroxaban [Xarelto] 15 mg PO DAILY 08/22/17 [History] Polyethylene Glycol 3350 [MiraLAX] 17 gm PO DAILY #30 powd.pack 08/26/17 [Rx] Cetirizine HCl [Zyrtec] 10 mg PO DAILY 09/07/17 [History] Ascorbic Acid [Vitamin C] 500 mg PO 0630 #30 tablet 03/05/18 [Rx] Ferrous Sulfate 325 mg PO 0630 #30 tablet 03/05/18 [Rx] Furosemide [Lasix] 40 mg PO DAILY #0 03/05/18 [Rx] Insulin Glargine,Hum.rec.anlog [Basaglar Kwikpen U-100] 20 unit SQ QAM #0 [Rx] cloNIDine HCl [CloNIDine HCl] 0.1 mg PO TID #90 tablet 03/05/18 [Rx] Allergies/Adverse Reactions: 3 Allergy/AdvReac Type Severity Reaction Status Date / Time No Known Allergies Allergy Verified 03/01/18 14:16 Date of admission: 03/01/18 19:14 Primary care physician: Raisa Warner Consults: 03/02/18 12:12 Consult to Occupational Therapy [CONS] Routine Comment: Evaluate, develop and implement POC Reason for Consult: Weakness Does patient have active BEDREST order?: No Is patient medically & hemodynamically stable?: Yes Patient assessed for mobility or mobilized this visit?: Yes Consult to Physical Therapy [CONS] Routine Comment: Evaluate, develop and implement POC Reason for Consult: Weakness Does patient have active BEDREST order?: No Is patient medically & hemodynamically stable?: Yes Patient assessed for mobility or mobilized this visit?: Yes - Constitutional Vitals: Temp Pulse Resp BP Pulse Ox 98.4 F 70 20 135/70 97 03/05/18 06:52 03/05/18 06:52 03/05/18 06:52 03/05/18 06:52 03/05/18 06:52 - Patient Status Disposition: Home, Self-Care Condition: Fair Overall status at discharge: patient is progressing back to baseline - Discharge Instructions Follow Up With: Raisa Warner, CLINICAL STUDIES SPECIALIST [Primary Care Provider] - 1 week - Diet and Activity Activity: resume usual activities as tolerated Diet: diabetic diet - VTE Documentation of Mechanical Device: Graduated compression elastic hosiery
[2018-03-05] MEDS: Insulin DETEMIR 100 UNIT/ML X5UNITS SQ SCH (10:51)
== END 2018-03-05 11:30 | disposition home or self-care (01) ==
LOC: EMEROOPIK 14:15 → INPPIK 14:15
PROVIDERS: ADMIT Internal Medicine; ATTEND Internal Medicine

== ENCOUNTER 2018-04-14 18:27 | Inpatient (IN) ==
--- NOTE | 2018-04-14 19:06 | Emergency Department Note ---
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: with mcc use Qualified Code(s): E11.65 - Type 2 diabetes mellitus with hyperglycemia Disposition: Admitted As Inpatient Condition: Fair Referrals: Raisa Warner CNP [Primary Care Provider] - Forms: ED Satisfaction Letter, Work/School Release General Adult HPI - General Chief complaint: ED General Medical Stated complaint: BODY ACHES Time Seen by Provider: 04/14/18 18:47 Source: patient Mode of arrival: private vehicle Limitations: no limitations Nursing Notes Reviewed: Yes Vital Signs Reviewed: Yes - History of Present Illness HPI Narrative: Patient presents to the ED complaining of generalized body aches in his arms and his legs, low back pain, diarrhea and trouble urinating. He reports several episodes of loose watery stools over the past 2-3 days. States his urine flow is slow to start and he occasionally has pain in his epigastric area while urinating. He also complains of low back pain but does not recall any specific injury. He states he threw up 3 times this morning. Emesis was nonbloody and nonbilious. He is in since then with no further vomiting. He reports some chills but has not checked his temperature at home. Denies any sore throat or congestion but has had rhinorrhea and sneezing. He reports a cough over the past 3 days that is occasionally productive of white phlegm. He states he is always short of breath due to his COPD but it seems slightly worse over the past 2 days. He took one dose of TheraFlu today without improvement. He states his brother and nephews that he stays with have all had similar symptoms. No recent travel. Pain Scale: 8 - Related Data Home Medications Medication Instructions Recorded Confirmed Aspirin [Lo-Dose Aspirin EC] 81 mg PO QAM 07/11/16 04/14/18 Atorvastatin [Lipitor] 40 mg PO HS 07/11/16 04/14/18 Insulin ASPART [Novolog Flexpen] 20 unit SQ TIDWM 07/11/16 04/14/18 Albuterol Sulfate [Ventolin Hfa] 2 puff IH Q4H PRN 10/07/16 04/14/18 Rivaroxaban [Xarelto] 15 mg PO DAILY 08/22/17 04/14/18 Cetirizine HCl [Zyrtec] 10 mg PO DAILY 09/07/17 04/14/18 Previous Rx's Medication Instructions Recorded Diltiazem CD (24hr) [Cardizem CD] 120 mg PO DAILY #30 tab 07/07/17 Isosorbide MONOnitrate (24 HR) 30 mg PO DAILY #30 tab 07/07/17 [Imdur] Polyethylene Glycol 3350 [MiraLAX] 17 gm PO DAILY #30 powd.pack 08/26/17 Ascorbic Acid [Vitamin C] 500 mg PO 0630 #30 tablet 03/05/18 Ferrous Sulfate 325 mg PO 0630 #30 tablet 03/05/18 Furosemide [Lasix] 40 mg PO DAILY #0 03/05/18 Insulin Glargine,Hum.rec.anlog 20 unit SQ QAM #0 03/05/18 [Basaglar Kwikpen U-100] Allergies Allergy/AdvReac Type Severity Reaction Status Date / Time No Known Allergies Allergy Verified 03/01/18 14:16 Constitutional: Reports: as per HPI, chills Eyes: Denies: eye pain, eye discharge, vision change ENT ED: Denies: ear pain, throat pain, dental pain, hearing loss, epistaxis, congestion, dysphagia Cardiovascular: Denies: chest pain, palpitations, dyspnea on exertion, edema, syncope Respiratory: Reports: as per HPI, cough, dyspnea, sputum production. Denies: wheezes, hemoptysis, stridor Gastrointestinal: Reports: as per HPI, nausea, vomiting, diarrhea. Denies: abdominal pain, constipation, hematemesis, melena, hematochezia Genitourinary: Reports: as per HPI. Denies: urgency, dysuria, frequency, hematuria Musculoskeletal: Reports: myalgia. Denies: back pain, neck pain, arthralgia Integumentary: Denies: rash, abrasion, lesions Neurological: Denies: headache, weakness, numbness, paresthesias, confusion, abnormal gait, vertigo Psychiatric: Denies: anxiety, depression, suicidal thoughts, homicidal thoughts , auditory hallucinations, visual hallucinations Endocrine: Denies: fatigue Hematological/Lymphatic: Denies: easy bleeding, easy bruising Allergic/Immunologic: Denies: facial swelling, urticaria Past Medical History - Past Medical History Medical history: Reports: arthritis, atrial fibrillation, CHF, COPD, coronary artery disease, CVA, diabetes, GERD, hyperlipidemia, hypertension, myocardial infarction, renal disease Surgical history: Reports: cataract, coronary bypass (CABG), orthopedic, other, other Psychiatric history: Reports: anxiety, depression - Social History Smoking Status: Former smoker Smokeless Tobacco Status: Yes Alcohol use: Reports: none Drug use: Reports: none Physical Exam - General Limitations: no limitations General appearance: alert, in no apparent distress - Head Head exam: atraumatic, normocephalic, normal inspection - Eye Eye exam: Present: normal appearance, PERRL, EOMI - ENT ENT exam: normal exam, normal oropharynx, mucous membranes moist - Neck Neck exam: Present: normal inspection, full ROM, trachea midline - Chest Chest inspection: Present: normal inspection, symmetric chest wall rise - Respiratory Respiratory exam: Absent: respiratory distress, wheezes - Expanded Respiratory Exam Location: rhonchi: Left, Right, Upper, Lower (scattered) - Cardiovascular Cardiovascular exam: Present: regular rate, normal rhythm, normal heart sounds - Abdominal Exam Abdominal exam: Present: soft, tenderness, normal bowel sounds. Absent: distention, guarding, rebound, rigidity Abdominal tenderness: Present: suprapubic, mild - Extremities Exam Extremities exam: Present: normal inspection, full ROM. Absent: tenderness, pedal edema - Expanded Lower Extremity Exam Foot/toe exam: Present: other (diabetic ulcer sole of L foot, 1cm diameter, no drainage, warmth or erythema) - Back Exam Back exam: Present: normal inspection, full ROM. Absent: tenderness, CVA tenderness (R), CVA tenderness (L) - Neurological Exam Neurological exam: Present: alert, oriented X3 - Psychiatric Psychiatric exam: Present: normal affect, normal mood - Skin Skin exam: Present: warm, dry, intact, normal color Course Course Narrative: Presents to the ED with a few days of body aches, low back pain, nausea, vomiting, diarrhea, chills, cough and runny nose. On arrival he has a low- grade fever of 100.0. He is otherwise hemodynamically stable and nontoxic in appearance. Symptoms are concerning for viral illness including possibility of influenza versus gastroenteritis versus other viral illness or pneumonia. He is not in any distress. Will check routine labs and chest x-ray will give Tylenol for the low-grade fever. - Reevaluation(s) Reevaluation #1: Laboratory stay showed a leukocytosis of 24,000 with high neutrophils. No bandemia. BMP shows a glucose of 400, sodium of 127, normal potassium but elevated creatinine at 2. He was 1.673 weeks ago. Urine is positive for glucose and trace blood but no signs of infection. Chest x-ray is normal. Flu swab is negative. Patient's temperature is also increased to 102.5 despite being given Tylenol on arrival. We will give ibuprofen. Will start IV fluids as well as give insulin for his hyperglycemia and check additional labs for evidence of DKA. Patient has a diabetic foot ulcer but on exam this does not appear infected. This is being managed by Dr. Paulino with last visit on 510 and no evidence of infection that time. He has not recently been on any antibiotics. He states he has "bad teeth" but no pain, swelling or drainage or new problems with his teeth. At this time patient's presentation is concerning for sepsis without any identified source at this time. Will obtain CT the abdomen given the diarrhea and vomiting earlier today. Will check lactic acid and obtain blood cultures. Time: 20:32 Reevaluation #2: Lactic acid is normal. VBG shows only a slightly low bicarbonate and a pH is 7.46. Beta hydroxybutyrate acid is minimally elevated. His anion gap is only 11. He does not meet criteria for DKA or sepsis criteria at this time. Will check CT of the abdomen given report of recent diarrhea and epigastric discomfort. Glucose has improved to 320 after receiving fluid and insulin. Fever has broken and temperature is currently 98.7. Time: 21:10 Reevaluation #3: CT the abdomen showed only some perinephric stranding on the left that is nonspecific. There is no corresponding urinary tract infection and there was no evidence of kidney stones. Patient essentially meet SIRS criteria with no source of infection as well as having hyperglycemia and acute kidney injury. For all these reasons he needs to be admitted for continued IV hydration, glucose control and monitoring of kidney function and leukocytosis. Discussed all test results and plan with patient who is in agreement. I spoke to the hospitalist on-call, Dr. Mcdaniel who has agreed to admit the patient. Time: 21:19 Vital Signs Temperature 100.0 F H 04/14/18 18:28 Pulse Rate 107 04/14/18 18:28 Respiratory Rate 18 05/16/18 18:28 Blood Pressure 160/70 04/14/18 18:28 O2 Sat by Pulse Oximetry 96 04/14/18 18:28 Temperature 98.7 F 04/14/18 21:07 Pulse Rate 99 04/14/18 21:07 Respiratory Rate 16 04/14/18 21:07 Blood Pressure 138/62 04/14/18 21:07 O2 Sat by Pulse Oximetry 98 04/14/18 21:07 Oxygen Delivery Oxygen Delivery Room Air Medical Decision Making - Medical Records Medical records reviewed: Yes I reviewed the patient's medical records. - Lab Data Lab results reviewed: Yes I reviewed the patient's lab results. Result diagrams: 04/14/18 19:18 04/14/18 19:18 Lab Results 04/14/18 04/14/18 04/14/18 Range/Units 06:45 19:18 19:18 WBC 26.8 H (4.3-11.1) K/mcL RBC 4.77 (4.19-5.50) M/mcL Hgb 11.8 L (12.9-16.9) g/dL Hct 36.9 L (37.5-50.1) % MCV 77.4 L (83.0-100.0) fL MCH 24.7 L (28.0-33.3) pg MCHC 32.0 (31.6-35.5) g/dL RDW 14.8 H (11.5-14.5) % Plt Count 189 (140-400) K/mcL MPV 9.8 (9.4-12.4) fL Immature Gran % 0.7 (0-4) % Seg Neutrophils % 90.9 % Lymphocytes % 2.9 % Monocytes % 5.4 % Eosinophils % 0.0 % Basophils % 0.1 % Neutrophils # 24.4 H (1.6-8.9) K/mcL Lymphocytes # 0.8 (0.6-4.6) K/mcL Monocytes # 1.5 H (0.0-1.3) K/mcL Eosinophils # 0.0 (0.0-0.6) K/mcL Basophils # 0.0 (0.0-0.2) K/mcL Platelet Estimate Normal (Normal) VBG pH (7.32-7.42) pH Units VBG pCO2 (41-51) mmHg VBG pO2 (25-50) mmHg VBG HCO3 (21-27) mEq/L Sodium 127 L (136-145) mEq/L Potassium 4.2 (3.5-5.1) mEq/L Chloride 96 L (98-107) mEq/L Carbon Dioxide 22 L (23-29) mEq/L BUN 32 H (6-20) mg/dL Creatinine 2.00 H (0.70-1.30) mg/dL Est GFR ( Amer) 42 L (> 60) Est GFR (Non-Af Amer) 35 L (> 60) BUN/Creatinine Ratio 16 (6-26) Glucose 412 H (70-105) mg/dL Calculated Osmolality 288 (280-300) Lactic Acid (0.5-2.2) mmol/L Calcium 9.6 (8.6-10.3) mg/dL Beta-Hydroxybutyric Acd (0.02-0.27) mmol/L Urine Color Yellow (Yellow) Urine Clarity Clear (Clear) Urine pH 5.5 (5.0-8.0) pH Units Ur Specific [place] 1.010 (1.010-1.025) Urine Protein 100 H (Neg-Trace) mg/dL Urine Glucose (UA) >=1000 H (Normal) mg/dL Urine Ketones Negative (Negative) mg/dL Urine Blood Small H (Negative) Urine Nitrite Negative (Negative) Urine Bilirubin Negative (Negative) Urine Urobilinogen Normal (Normal) mg/dL Ur Leukocyte Esterase Negative (Negative) Urine Microscopic RBC 0-3 (0-3) per hpf Ur Culture Indicated? NO (NO) 04/14/18 04/14/18 04/14/18 Range/Units 20:08 20:08 20:19 WBC (4.3-11.1) K/mcL RBC (4.19-5.50) M/mcL Hgb (12.9-16.9) g/dL Hct (37.5-50.1) % MCV (83.0-100.0) fL MCH (28.0-33.3) pg MCHC (31.6-35.5) g/dL RDW (11.5-14.5) % Plt Count (140-400) K/mcL MPV (9.4-12.4) fL Immature Gran % (0-4) % Seg Neutrophils % % Lymphocytes % % Monocytes % % Eosinophils % % Basophils % % Neutrophils # (1.6-8.9) K/mcL Lymphocytes # (0.6-4.6) K/mcL Monocytes # (0.0-1.3) K/mcL Eosinophils # (0.0-0.6) K/mcL Basophils # (0.0-0.2) K/mcL Platelet Estimate (Normal) VBG pH 7.46 H (7.32-7.42) pH Units VBG pCO2 28 L (41-51) mmHg VBG pO2 54 H (25-50) mmHg VBG HCO3 20 L (21-27) mEq/L Sodium (136-145) mEq/L Potassium (3.5-5.1) mEq/L Chloride (98-107) mEq/L Carbon Dioxide (23-29) mEq/L BUN (6-20) mg/dL Creatinine (0.70-1.30) mg/dL Est GFR ( Amer) (> 60) Est GFR (Non-Af Amer) (> 60) BUN/Creatinine Ratio (6-26) Glucose (70-105) mg/dL Calculated Osmolality (280-300) Lactic Acid 1.3 (0.5-2.2) mmol/L Calcium (8.6-10.3) mg/dL Beta-Hydroxybutyric Acd 0.38 H (0.02-0.27) mmol/L Urine Color (Yellow) Urine Clarity (Clear) Urine pH (5.0-8.0) pH Units Ur Specific [place] (1.010-1.025) Urine Protein (Neg-Trace) mg/dL Urine Glucose (UA) (Normal) mg/dL Urine Ketones (Negative) mg/dL Urine Blood (Negative) Urine Nitrite (Negative) Urine Bilirubin (Negative) Urine Urobilinogen (Normal) mg/dL Ur Leukocyte Esterase (Negative) Urine Microscopic RBC (0-3) per hpf Ur Culture Indicated? (NO) - Radiology Data Radiology results reviewed: Yes I reviewed the patient's radiology results. ITS Impressions Chest X-Ray 04/14/18 19:02 IMPRESSION: No evidence of acute cardiopulmonary disease. D/ / 04/14/2018 20:02:14 Andrzej Samano MD / [email or web address] Interpreting Provider: Andrzej Samano MD Abdomen/Pelvis CT 04/14/18 20:27 IMPRESSION: Mild perinephric stranding on the left. No renal stone visualized. No hydronephrosis. Findings are nonspecific. Correlate with urinalysis. Advanced degenerative changes about the right hip. D/ / Lilly Sequeira MD / Lilly Sequeira MD Interpreting Provider: Lilly Sequeira MD
[2018-04-14] MEDS ORDERED: Acetaminophen 325 MG TABLET PO ONE (19:08)
[2018-04-14 19:10] LABS: Bilirubin,Urine Negative (Negative); Blood,Urine Small (Negative); Clarity,Urine Clear (Clear); Color,Urine Yellow (Yellow); Glucose,Urine (UA) >=1000 mg/dL (Normal); Ketones,Urine Negative (Negative); Leukocyte Esterase,Urine Negative (Negative); Nitrite,Urine Negative (Negative); PH,Urine 5.5 pH Units (5.0-8.0); Protein,Urine 100 mg/dL (Neg-Trace); Urobilinogen,Urine Normal (Normal)
[2018-04-14 19:17] LABS: RBC,Urine 0-3 per hpf (0-3)
[2018-04-14 19:25] LABS: Basophils % 0.1 %; Hematocrit 36.9 % (37.5-50.1); Hemoglobin 11.8 g/dL (12.9-16.9); Immature Granulocytes % 0.7 % (0-4); Lymphocytes # 0.8 K/mcL (0.6-4.6); Lymphocytes % 2.9 %; Mean Corpuscular Hemoglobin 24.7 pg (28.0-33.3); Mean Corpuscular Volume 77.4 fL (83.0-100.0); Mean Platelet Volume 9.8 fL (9.4-12.4); Monocytes # 1.5 K/mcL (0.0-1.3); Monocytes % 5.4 %; Neutrophils # 24.4 K/mcL (1.6-8.9); Platelet Count 189 K/mcL (140-400); Red Blood Count 4.77 M/mcL (4.19-5.50); Red Cell Distribution Width 14.8 % (11.5-14.5); Segmented Neutrophils % 90.9 %
[2018-04-14 19:44] LABS: Calcium 9.6 mg/dL (8.6-10.3); Potassium 4.2 mEq/L (3.5-5.1)
[2018-04-14 19:52] LABS: Platelet Estimate Normal (Normal)
[2018-04-14] MEDS ORDERED: 0.9 % Sodium Chloride 1,000 ML IVC ONE (19:52)
[2018-04-14] MEDS ORDERED: Ibuprofen 800 MG TABLET PO ONE (19:52)
[2018-04-14] MEDS ORDERED: Insulin Regular, Human 100 UNIT/ML IV SCH (20:00)
[2018-04-14] MEDS ORDERED: Insulin Human Regular 7 UNIT in 0.9 % Sodium Chloride 10 ML IV ONE (20:00)
[2018-04-14 20:22] LABS: VBG HCO3 20 mEq/L (21-27); VBG PCO2 28 mmHg (41-51); VBG PH 7.46 pH Units (7.32-7.42); VBG PO2 54 mmHg (25-50)
[2018-04-14] MEDS ORDERED: 0.9 % Sodium Chloride 1,000 ML IVC SCH (21:15)
[2018-04-14] MEDS ORDERED: Naloxone 0.4 MG/ML INJ IVP PRN ×2 (21:26→21:57)
[2018-04-14] MEDS ORDERED: D5% in Water 1,000 ML IVC PRN ×2 (21:28→21:57)
[2018-04-14] MEDS ORDERED: Dextrose Gel 15 GM/37.5 ML TUBE PO PRN ×4 (21:28→21:57)
[2018-04-14] MEDS ORDERED: *HR* Dextrose 50 % in Water (Syg) 50 ML SYRINGE IVP PRN ×2 (21:28→21:57)
[2018-04-14] MEDS: 0.9 % Sodium Chloride 1,000 ML IVC SCH (23:58)
[2018-04-15 05:43] LABS: Basophils % 0.1 %; Eosinophils % 0.1 %; Hematocrit 37.1 % (37.5-50.1); Hemoglobin 11.8 g/dL (12.9-16.9); Immature Granulocytes % 0.7 % (0-4); Lymphocytes # 0.8 K/mcL (0.6-4.6); Lymphocytes % 3.9 %; Mean Corpuscular HGB Conc 31.8 g/dL (31.6-35.5); Mean Corpuscular Hemoglobin 25.1 pg (28.0-33.3); Mean Corpuscular Volume 78.9 fL (83.0-100.0); Mean Platelet Volume 10.1 fL (9.4-12.4); Monocytes # 0.8 K/mcL (0.0-1.3); Monocytes % 4.2 %; Neutrophils # 18.3 K/mcL (1.6-8.9); Platelet Count 170 K/mcL (140-400); Red Cell Distribution Width 14.9 % (11.5-14.5)
[2018-04-15] MEDS: Ascorbic Acid 500 MG TABLET PO SCH (06:44)
[2018-04-15 07:11] LABS: Calcium 9.2 mg/dL (8.6-10.3); Potassium 4.4 mEq/L (3.5-5.1)
[2018-04-15] MEDS ORDERED: Insulin LISPRO 300 UNITS/3 ML VIAL SQ SCH ×3 (07:30→21:00)
[2018-04-15] MEDS: Aspirin Enteric Coated 81 MG Tablet PO SCH (08:53)
[2018-04-15] MEDS: *HR* Rivaroxaban 15 MG TABLET PO SCH (08:53)
[2018-04-15] MEDS: Diltiazem CD (24hr) 120 MG CAPSULE PO SCH (08:53)
[2018-04-15] MEDS: Insulin LISPRO 300 UNITS/3 ML VIAL SQ SCH ×3 (08:53→17:13)
[2018-04-15] MEDS: Isosorbide MONOnitrate (24 HR) 30 MG TAB.ER.24H PO SCH (08:53)
[2018-04-15] MEDS: 0.9 % Sodium Chloride 1,000 ML IVC SCH (08:58)
[2018-04-15] MEDS ORDERED: Insulin DETEMIR 100 UNIT/ML X5UNITS SQ SCH (09:00)
[2018-04-15] MEDS ORDERED: Loratadine 10 MG TABLET PO SCH (09:00)
[2018-04-15] MEDS ORDERED: NON-FORMULARY MEDICATION 1 EACH EACH (Insulin Glargine,Hum.Rec.Anlog [Basaglar Kwikpen U-1 SQ SCH (09:00)
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
[2018-04-15] MEDS ORDERED: Acetaminophen 325 MG TABLET PO PRN (16:43)
[2018-04-15] MEDS ORDERED: Clindamycin 900 MG/50 ML 900 MG/50 ML IV.SOLN IVPB SCH (18:35)
[2018-04-15] MEDS ORDERED: *HR* HYDROcodone/Acet 5/325 mg TABLET PO PRN (19:55)
[2018-04-15] MEDS: Lactobacillus 1 EACH CAP.SPRINK PO SCH (20:41)
[2018-04-15] MEDS: Insulin DETEMIR 100 UNIT/ML X5UNITS SQ SCH (20:50)
[2018-04-16] MEDS ORDERED: Clindamycin 900 MG/50 ML 900 MG/50 ML IV.SOLN IVPB SCH (04:00)
[2018-04-16] MEDS: Ascorbic Acid 500 MG TABLET PO SCH (04:56)
[2018-04-16 07:14] LABS: Basophils % 0.2 %; Eosinophils # 0.1 K/mcL (0.0-0.6); Eosinophils % 0.7 %; Hemoglobin 11.9 g/dL (12.9-16.9); Immature Granulocytes % 0.5 % (0-4); Lymphocytes # 0.8 K/mcL (0.6-4.6); Lymphocytes % 4.7 %; Mean Corpuscular HGB Conc 31.3 g/dL (31.6-35.5); Mean Corpuscular Hemoglobin 24.8 pg (28.0-33.3); Mean Corpuscular Volume 79.2 fL (83.0-100.0); Mean Platelet Volume 9.7 fL (9.4-12.4); Monocytes % 6.3 %; Platelet Count 199 K/mcL (140-400); Red Cell Distribution Width 14.9 % (11.5-14.5); Segmented Neutrophils % 87.6 %
[2018-04-16] MEDS: Isosorbide MONOnitrate (24 HR) 30 MG TAB.ER.24H PO SCH (07:35)
[2018-04-16] MEDS: Lactobacillus 1 EACH CAP.SPRINK PO SCH (07:35)
[2018-04-16] MEDS: Insulin LISPRO 300 UNITS/3 ML VIAL SQ SCH (07:35)
[2018-04-16] MEDS: Diltiazem CD (24hr) 120 MG CAPSULE PO SCH (07:35)
[2018-04-16] MEDS: *HR* Rivaroxaban 15 MG TABLET PO SCH (07:36)
[2018-04-16] MEDS: Aspirin Enteric Coated 81 MG Tablet PO SCH (07:36)
[2018-04-16 07:39] LABS: Neutrophils # 14.4 K/mcL (1.6-8.9)
[2018-04-16 07:43] LABS: Calcium 9.2 mg/dL (8.6-10.3)
[2018-04-16] MEDS: Insulin DETEMIR 100 UNIT/ML X5UNITS SQ SCH (09:36)
--- NOTE | 2018-04-16 09:48 | Discharge Summary ---
Orders not resulted at time of discharge: Pending orders 04/16/18 06:03 Zinc AM 0400 04/16/18 22:00 Vancomycin,Trough Timed Date of Encounter: 04/16/18 Time of Encounter: 09:35 - Discharge Diagnosis (1) Osteomyelitis Priority: Primary Status: Acute Qualifiers: Osteomyelitis type: unspecified type Osteomyelitis location: foot Laterality: right Qualified Code(s): M86.9 - Osteomyelitis, unspecified (2) Cellulitis and abscess of foot Priority: Secondary Status: Acute (3) Obstructive sleep apnea Priority: Secondary Status: Chronic (4) Atrial fibrillation Priority: Secondary Status: Chronic Qualifiers: Atrial fibrillation type: paroxysmal Qualified Code(s): I48.0 - Paroxysmal atrial fibrillation (5) Chronic kidney disease, stage III (moderate) Priority: Secondary Status: Chronic (6) Type 2 diabetes mellitus Priority: Secondary Status: Chronic Qualifiers: 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 mellitus 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 Diabetes mellitus complication status: with skin complications Diabetes mellitus complication detail: with foot ulcer Qualified Code(s): E11.621 - Type 2 diabetes mellitus with foot ulcer; L97.509 - Non-pressure chronic ulcer of other part of unspecified foot with unspecified severity; Z79.4 - residential ( current) use of insulin (7) Anemia Priority: Secondary Status: Acute Qualifiers: Anemia type: unspecified type Qualified Code(s): D64.9 - Anemia, unspecified (8) Hypertension Priority: Secondary Status: Chronic Qualifiers: Hypertension type: essential hypertension Qualified Code(s): I10 - Essential (primary) hypertension Hospital course: Mr. Hughes is a 52 year old male who came to emergency room stating he had onset of fever with right foot pain and diarrhea on April 12. He had 2 episodes of vomiting the morning of April 14 and decided to seek medical attention since he did not feel improved. He was evaluated in emergency room and admitted to [facility] for ongoing care needs. Initial orders were written by the emergency room physician. I saw him on April 15 and performed a history and physical. He was started empirically on IV vancomycin for cellulitis. MRI was ordered to further evaluated. There was questionable early osteomyelitis involving the fifth phalangeal base and metatarsal head. A small foci of suspected soft tissue gas was seen around the fifth MTP joint extending to the lateral aspect of the third MTP joint. I spoke with Dr. Jansen the morning of April 16 about these findings. He was agreeable to accept the patient in transfer to [facility] for aspiration/biopsy and further treatment. - Time Spent with Patient Total time spent providing and/or coordinating discharge services: - Discharge Medications Home Medications: Aspirin [Lo-Dose Aspirin EC] 81 mg PO QAM 07/11/16 [History] Atorvastatin [Lipitor] 40 mg PO HS 07/11/16 [History] Insulin ASPART [Novolog Flexpen] 20 unit SQ TIDWM 07/11/16 [History] Albuterol Sulfate [Ventolin Hfa] 2 puff IH Q4H PRN 10/07/16 [History] Diltiazem CD (24hr) [Cardizem CD] 120 mg PO DAILY #30 tab 07/07/17 [Rx] Isosorbide MONOnitrate (24 HR) [Imdur] 30 mg PO DAILY #30 tab 07/07/17 [Rx] Rivaroxaban [Xarelto] 15 mg PO DAILY 08/22/17 [History] Polyethylene Glycol 3350 [MiraLAX] 17 gm PO DAILY #30 powd.pack 08/26/17 [Rx] Cetirizine HCl [Zyrtec] 10 mg PO DAILY 09/07/17 [History] Ascorbic Acid [Vitamin C] 500 mg PO 0630 #30 tablet 03/05/18 [Rx] Ferrous Sulfate 325 mg PO 0630 #30 tablet 03/05/18 [Rx] Furosemide [Lasix] 40 mg PO DAILY #0 03/05/18 [Rx] Insulin Glargine,Hum.rec.anlog [Basaglar Kwikpen U-100] 20 unit SQ QAM #0 [Rx] Allergies/Adverse Reactions: 3 Allergy/AdvReac Type Severity Reaction Status Date / Time No Known Allergies Allergy Verified 03/01/18 14:16 Date of admission: 04/15/18 12:12 Primary care physician: Raisa Warner - Constitutional Vitals: Temp Pulse Resp BP Pulse Ox 98.4 F 107 20 190/95 98 04/16/18 06:27 04/16/18 06:27 04/16/18 06:27 04/16/18 06:27 04/16/18 06:27 - Patient Status Disposition: Transfer Other Condition: Fair - Discharge Instructions - VTE Reasons for not Prescribing Prophylaxis: Not indicated-Anticoagulated or INR therapeutic
[2018-04-16 09:54] VITALS: BP 175/75
[2018-04-16] MEDS ORDERED: Aminoglycoside Consult 1 EACH MC ONE (22:00)
== END 2018-04-16 12:15 | disposition other institution (70) | DRG 344 ==
LOC: EMEROOPIK 18:27 → INPPIK 18:27
PROVIDERS: ADMIT Internal Medicine; ATTEND Internal Medicine

== ENCOUNTER 2019-03-07 16:49 | Observation (INO) ==
--- NOTE | 2019-03-07 17:36 | Emergency Department Note ---
Disposition Clinical Impression: Acute exacerbation of CHF (congestive heart failure) Qualifiers: Heart failure type: unspecified Qualified Code(s): I50.9 - Heart failure, unspecified Disposition: Admitted As Inpatient Condition: Fair Referrals: NONE,PCP [Primary Care Provider] - Forms: ED Satisfaction Letter, Work/School Release General Adult HPI - General Chief complaint: ED General Medical Stated complaint: Need water pill. Says he can't get his PCP to fill Time Seen by Provider: 03/07/19 17:07 Source: patient Mode of arrival: private vehicle Limitations: physical limitation Nursing Notes Reviewed: Yes Vital Signs Reviewed: Yes - History of Present Illness HPI Narrative: Patient presents to the ED complaining of "filling up with fluid" due to being out of his Lasix. States he has been out of his Lasix for almost a week and normally takes 40 mg twice a day. He saw his PCP, Raisa Warner well over a week ago and states she was supposed to refill his medication but the pharmacy has repeatedly told him they did not have a prescription for him. States he has been unable to reach anyone in her office about the refill. He comes in today because he has had increasing swelling and shortness of breath. Shortness of breath has been going on for 2 days with dyspnea on exertion primarily. He has chronic orthopnea as well. He states he feels like he is swollen up to his abdomen where is he normally only has very mild swelling in his feet. He had a few seconds of chest pain yesterday and felt dizzy but it went away and he has no chest pain currently. He does report constipation although he had a small bowel movement this morning. He has a chronic cough as well as some rhinorrhea. No sore throat or nasal congestion. No fever or chills. Reports tinnitus. He wears CPAP at night but does not require home oxygen. He states he did feel like his heart was beating faster than usual yesterday. He has a history of A. fib but he does not think he is in it all the time. He also has CHF, CAD, COPD, diabetes, hypertension, high cholesterol, chronic kidney disease as well as an WI in the past and CABG. He has not seen a proof machine operator supervisor in approximately 1 year. Medications are all managed by his PCP. Pain Scale: 6 - Related Data Home Medications Medication Instructions Recorded Confirmed Aspirin [Lo-Dose Aspirin EC] 81 mg PO QAM 07/11/16 01/11/19 Atorvastatin [Lipitor] 40 mg PO HS 07/11/16 01/11/19 Albuterol Sulfate [Ventolin Hfa] 2 puff IH Q4H PRN 10/07/16 12/25/18 Rivaroxaban [Xarelto] 20 mg PO DAILY 08/22/17 01/11/19 Cetirizine HCl [Zyrtec] 10 mg PO DAILY 09/07/17 01/11/19 Polyethylene Glycol 3350 [MiraLAX] 17 gm PO DAILY PRN 04/16/18 01/11/19 cloNIDine HCl [CloNIDine HCl] 0.1 mg PO TID 04/17/18 01/11/19 Metoprolol [Lopressor] 25 mg PO BID 04/23/18 01/11/19 Ferrous Sulfate 325 mg PO QMWF 12/25/18 01/11/19 Insulin Human Regular [HumuLIN R] 80 unit SQ BID 12/25/18 01/11/19 Insulin ASPART [Novolog Flexpen] 01/11/19 Insulin DETEMIR [Levemir Flextouch] 01/11/19 L. Acidophilus/Pectin, [place] 1 PO DAILY 01/11/19 [Acidophilus Capsule] Previous Rx's Medication Instructions Recorded Diltiazem CD (24hr) [Cardizem CD] 120 mg PO DAILY #30 tab 07/07/17 Isosorbide MONOnitrate (24 HR) 30 mg PO DAILY #30 tab 07/07/17 [Imdur] Furosemide [Lasix] 40 mg PO DAILY #0 03/05/18 predniSONE [PredniSONE] 60 mg PO DAILY #15 tablet 12/25/18 Allergies Allergy/AdvReac Type Severity Reaction Status Date / Time No Known Allergies Allergy Verified 01/11/19 14:14 Constitutional: Denies: fever, chills, weakness, weight change Eyes: Denies: eye pain, eye discharge, vision change ENT ED: Denies: ear pain, throat pain, dental pain, hearing loss, epistaxis, congestion, dysphagia Cardiovascular: Reports: as per HPI, palpitations, dyspnea on exertion, orthopnea, edema. Denies: chest pain, syncope Respiratory: Reports: cough (chronic), dyspnea. Denies: wheezes, hemoptysis, stridor Gastrointestinal: Reports: constipation. Denies: abdominal pain, nausea, vomiti ng, diarrhea, hematemesis, melena, hematochezia Genitourinary: Denies: urgency, dysuria, frequency, hematuria Musculoskeletal: Denies: back pain, neck pain, arthralgia, myalgia Integumentary: Denies: rash, abrasion, lesions Neurological: Denies: headache, weakness, numbness, paresthesias, confusion, abnormal gait, vertigo Psychiatric: Denies: anxiety, depression, suicidal thoughts, homicidal thoughts, auditory hallucinations, visual hallucinations Endocrine: Denies: fatigue Hematological/Lymphatic: Denies: easy bleeding, easy bruising Allergic/Immunologic: Denies: facial swelling, urticaria Past Medical History - Past Medical History Medical history: Reports: arthritis, atrial fibrillation, CHF, COPD, coronary artery disease, CVA, diabetes, GERD, hyperlipidemia, hypertension, myocardial infarction, renal disease Surgical history: Reports: cataract, coronary bypass (CABG), orthopedic, other (Right hip replacement, ORIF right foot, 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 ), other Psychiatric history: Reports: anxiety, depression - Social History Smoking Status: Former smoker Smokeless Tobacco Status: Yes Alcohol use: Reports: none Drug use: Reports: none Physical Exam - General Limitations: other General appearance: alert, in no apparent distress, obese - Head Head exam: atraumatic, normocephalic, normal inspection - Eye Eye exam: Present: normal appearance, PERRL, EOMI - ENT ENT exam: normal exam, normal oropharynx, mucous membranes moist - Neck Neck exam: Present: normal inspection - Chest Chest inspection: Present: normal inspection, symmetric chest wall rise - Respiratory Respiratory exam: Absent: respiratory distress - Expanded Respiratory Exam Location: rales: Lower, Right, Left, decreased breath sounds: Left, Right, Lower - Cardiovascular Cardiovascular exam: Present: regular rate, normal rhythm, normal heart sounds, other (few irregular beats) - Abdominal Exam Abdominal exam: Present: soft, Non-Tender, distention, normal bowel sounds, other (pitting edema to lower abdominal wall). Absent: tenderness, guarding, rebound, rigidity - Extremities Exam Extremities exam: Present: normal inspection, full ROM, pedal edema (2+ entire legs). Absent: tenderness - Back Exam Back exam: Present: normal inspection, full ROM. Absent: tenderness - Neurological Exam Neurological exam: Present: alert, oriented X3 - Psychiatric Psychiatric exam: Present: normal affect, normal mood - Skin Skin exam: Present: warm, dry, intact, normal color Course Course Narrative: Patient presents to the ED complaining of increased swelling and shortness of breath after being out of his Lasix for almost a week. On arrival he is hypertensive and mildly tachycardic at 100 with oxygen saturations at 93% on room air. He has pitting edema in both legs and the lower abdominal wall. He is diminished with some rales on exam. I suspect fluid overload from CHF exacerbation due to being out of his diuretic. Will obtain chest x-ray, EKG and lab work and start IV diuresis. I anticipate he will require admission. - Reevaluation(s) Reevaluation #1: EKG shows a flutter. Medical history lists A. fib but he was in a flutter on his last EKG performed in December during another ER visit. Chest x-ray shows cardiomegaly and pulmonary vascular congestion. Laboratory studies are pending. Reevaluation #2: Laboratory shows a chronic but stable anemia. Troponin is normal. BNP is elevated at 250 and glucose is in the high 300s. Creatinine is 1.9 which appears above his baseline but slightly below his last set of lab work 2 months ago. Given this I feel the patient would be best served been diuresed under monitoring as he is also short of breath and significantly swollen. Patient has started to diurese with over 500 mL of urine out. Discussed with patient my recommendation for admission for IV diuresis and he is in agreement. Will contact the hospitalist on-call. Time: 19:10 Reevaluation #3: I spoke to Dr. Mcdaniel who accepted the patient. Vital Signs Temperature 98 F 03/07/19 16:53 Pulse Rate 100 03/07/19 16:53 Respiratory Rate 18 03/07/19 16:53 Blood Pressure 194/84 03/07/19 16:53 O2 Sat by Pulse Oximetry 93 03/07/19 16:53 Temperature 98 F 03/07/19 16:53 Pulse Rate 64 03/07/19 18:10 Respiratory Rate 16 03/07/19 18:10 Blood Pressure 164/69 03/07/19 18:10 O2 Sat by Pulse Oximetry 99 03/07/19 18:10 Oxygen Delivery Oxygen Delivery Nasal Cannula Medical Decision Making - Medical Records Medical records reviewed: Yes I reviewed the patient's medical records. - Lab Data Lab results reviewed: Yes I reviewed the patient's lab results. Result diagrams: 03/07/19 17:35 03/07/19 17:35 Lab Results 03/07/19 03/07/19 03/07/19 Range/Units 17:35 17:35 17:35 WBC 11.0 (4.3-11.1) K/mcL RBC 4.65 (4.19-5.50) M/mcL Hgb 10.9 L (12.9-16.9) g/dL Hct 35.8 L (37.5-50.1) % MCV 77.0 L (83.0-100.0) fL MCH 23.4 L (28.0-33.3) pg MCHC 30.4 L (31.6-35.5) g/dL RDW 16.6 H (11.5-14.5) % Plt Count 242 (140-400) K/mcL MPV 10.6 (9.4-12.4) fL Immature Gran % 0.5 (0-4) % Seg Neutrophils % 78.6 % Lymphocytes % 12.4 % Monocytes % 6.4 % Eosinophils % 1.6 % Basophils % 0.5 % Neutrophils # 8.6 (1.6-8.9) K/mcL Lymphocytes # 1.4 (0.6-4.6) K/mcL Monocytes # 0.7 (0.0-1.3) K/mcL Eosinophils # 0.2 (0.0-0.6) K/mcL Basophils # 0.1 (0.0-0.2) K/mcL PT (9.4-12.1) Seconds INR Sodium 133 L (136-145) mEq/L Potassium 5.4 H (3.5-5.1) mEq/L Chloride 104 (98-107) mEq/L Carbon Dioxide 21 L (23-29) mEq/L BUN 25 H (6-20) mg/dL Creatinine 1.92 H (0.70-1.30) mg/dL Est GFR ( Amer) 44 L (> 60) Est GFR (Non-Af Amer) 37 L (> 60) BUN/Creatinine Ratio 13 (6-26) Glucose 399 H (70-105) mg/dL Calculated Osmolality 297 (280-300) Calcium 9.4 (8.6-10.3) mg/dL Troponin I < 0.03 (< 0.04) ng/mL B-Natriuretic Peptide 250 H (Less than 100) pg/mL Urine Color (Yellow) Urine Clarity (Clear) Urine pH (5.0-8.0) pH Units Ur Specific [place] (1.010-1.025) Urine Protein (Neg-Trace) mg/dL Urine Glucose (UA) (Normal) mg/dL Urine Ketones (Negative) mg/dL Urine Blood (Negative) Urine Nitrite (Negative) Urine Bilirubin (Negative) Urine Urobilinogen (Normal) mg/dL Ur Leukocyte Esterase (Negative) Urine Microscopic RBC (0-3) per hpf Urine Microscopic WBC (0-3) per hpf Ur Squamous Epith Cells (None-Few) per lpf Urine Bacteria (None-Few) per hpf Urine Mucus (Few) Ur Culture Indicated? (NO) 03/07/19 03/07/19 Range/Units 17:35 18:00 WBC (4.3-11.1) K/mcL RBC (4.19-5.50) M/mcL Hgb (12.9-16.9) g/dL Hct (37.5-50.1) % MCV (83.0-100.0) fL MCH (28.0-33.3) pg MCHC (31.6-35.5) g/dL RDW (11.5-14.5) % Plt Count (140-400) K/mcL MPV (9.4-12.4) fL Immature Gran % (0-4) % Seg Neutrophils % % Lymphocytes % % Monocytes % % Eosinophils % % Basophils % % Neutrophils # (1.6-8.9) K/mcL Lymphocytes # (0.6-4.6) K/mcL Monocytes # (0.0-1.3) K/mcL Eosinophils # (0.0-0.6) K/mcL Basophils # (0.0-0.2) K/mcL PT 23.6 H (9.4-12.1) Seconds INR 2.1 Sodium (136-145) mEq/L Potassium (3.5-5.1) mEq/L Chloride (98-107) mEq/L Carbon Dioxide (23-29) mEq/L BUN (6-20) mg/dL Creatinine (0.70-1.30) mg/dL Est GFR ( Amer) (> 60) Est GFR (Non-Af Amer) (> 60) BUN/Creatinine Ratio (6-26) Glucose (70-105) mg/dL Calculated Osmolality (280-300) Calcium (8.6-10.3) mg/dL Troponin I (< 0.04) ng/mL B-Natriuretic Peptide (Less than 100) pg/mL Urine Color Light Yellow (Yellow) Urine Clarity Clear (Clear) Urine pH 6.5 (5.0-8.0) pH Units Ur Specific [place] 1.015 (1.010-1.025) Urine Protein 100 H (Neg-Trace) mg/dL Urine Glucose (UA) 500 H (Normal) mg/dL Urine Ketones Negative (Negative) mg/dL Urine Blood Trace-intact H (Negative) Urine Nitrite Negative (Negative) Urine Bilirubin Negative (Negative) Urine Urobilinogen Normal (Normal) mg/dL Ur Leukocyte Esterase Negative (Negative) Urine Microscopic RBC 0-3 (0-3) per hpf Urine Microscopic WBC 0-3 (0-3) per hpf Ur Squamous Epith Cells Few (None-Few) per lpf Urine Bacteria Few (None-Few) per hpf Urine Mucus Few (Few) Ur Culture Indicated? NO (NO) - Radiology Data Radiology results reviewed: Yes I reviewed the patient's radiology results. ITS Impressions Chest X-Ray 03/07/19 17:31 IMPRESSION: Mild cardiomegaly with pulmonary venous congestion. No overt CHF. D/ / Sawyer Adler MD / Sawyer Adler MD Interpreting Provider: Sawyer Adler MD - EKG Data EKG #1 EKG attestation: Yes I reviewed and interpreted this EKG. Rate: normal Rhythm: A. flutter Interpretation: no acute changes, unchanged when compared to prior tracing (date) (01/12/19)
[2019-03-07] MEDS ORDERED: Furosemide 40 MG/4 ML VIAL IVP ONE (17:39)
[2019-03-07 17:51] LABS: Basophils # 0.1 K/mcL (0.0-0.2); Basophils % 0.5 %; Eosinophils # 0.2 K/mcL (0.0-0.6); Eosinophils % 1.6 %; Hematocrit 35.8 % (37.5-50.1); Hemoglobin 10.9 g/dL (12.9-16.9); Immature Granulocytes % 0.5 % (0-4); Lymphocytes # 1.4 K/mcL (0.6-4.6); Lymphocytes % 12.4 %; Mean Corpuscular HGB Conc 30.4 g/dL (31.6-35.5); Mean Corpuscular Hemoglobin 23.4 pg (28.0-33.3); Mean Platelet Volume 10.6 fL (9.4-12.4); Monocytes # 0.7 K/mcL (0.0-1.3); Monocytes % 6.4 %; Neutrophils # 8.6 K/mcL (1.6-8.9); Platelet Count 242 K/mcL (140-400); Red Blood Count 4.65 M/mcL (4.19-5.50); Red Cell Distribution Width 16.6 % (11.5-14.5); Segmented Neutrophils % 78.6 %
[2019-03-07 17:58] LABS: INR 2.1; Prothrombin Time 23.6 Seconds (9.4-12.1)
[2019-03-07 18:03] LABS: Bilirubin,Urine Negative (Negative); Blood,Urine Trace-intact (Negative); Clarity,Urine Clear (Clear); Glucose,Urine (UA) 500 mg/dL (Normal); Ketones,Urine Negative (Negative); Leukocyte Esterase,Urine Negative (Negative); Nitrite,Urine Negative (Negative); PH,Urine 6.5 pH Units (5.0-8.0); Protein,Urine 100 mg/dL (Neg-Trace); Specific Gravity,Urine 1.015 (1.010-1.025); Urobilinogen,Urine Normal (Normal)
[2019-03-07 18:09] LABS: BUN/Creatinine Ratio 13 (6-26); Blood Urea Nitrogen 25 mg/dL (6-20); Calcium 9.4 mg/dL (8.6-10.3); Carbon Dioxide 21 mEq/L (23-29); Chloride 104 mEq/L (98-107); Glucose 399 mg/dL (70-105); Osmolality,Calculated 297 (280-300); Potassium 5.4 mEq/L (3.5-5.1); Sodium 133 mEq/L (136-145); eGFR For Non-African Americans 37 (> 60)
[2019-03-07 18:10] LABS: Troponin I < 0.03 ng/mL (< 0.04)
[2019-03-07 18:10] LABS: Color,Urine Light Yellow (Yellow)
[2019-03-07 18:13] LABS: Bacteria,Urine Few per hpf (None-Few); Mucus,Urine Few (Few); RBC,Urine 0-3 per hpf (0-3); Squamous Epithelial Cell,Urine Few per lpf (None-Few); WBC,Urine 0-3 per hpf (0-3)
[2019-03-07] MEDS ORDERED: Naloxone 0.4 MG/ML INJ IVP PRN ×2 (19:50→21:04)
[2019-03-07] MEDS ORDERED: cloNIDine HCl 0.1 MG TABLET PO SCH (21:00)
[2019-03-07] MEDS ORDERED: Insulin Regular, Human 100 UNIT/ML SQ SCH (21:00)
[2019-03-07] MEDS ORDERED: Dextrose Gel 15 GM/37.5 ML TUBE PO PRN ×2 (23:03)
[2019-03-07] MEDS ORDERED: *HR* Dextrose 50 % in Water (Vial) 50 ML VIAL IVP PRN (23:03)
[2019-03-07] MEDS ORDERED: D5% in Water 1,000 ML IVC PRN (23:03)
[2019-03-07] MEDS ORDERED: Insulin LISPRO 300 UNITS/3 ML VIAL SQ ONE (23:19)
[2019-03-07] MEDS: Insulin LISPRO 300 UNITS/3 ML VIAL SQ SCH (23:53)
[2019-03-08] MEDS: Aspirin Enteric Coated 81 MG Tablet PO SCH (07:50)
[2019-03-08] MEDS: Diltiazem CD (24hr) 120 MG CAPSULE PO SCH (07:50)
[2019-03-08] MEDS: *HR* Rivaroxaban 10 MG TABLET PO SCH (07:51)
[2019-03-08] MEDS: Loratadine 10 MG TABLET PO SCH (07:51)
[2019-03-08] MEDS: Insulin LISPRO 300 UNITS/3 ML VIAL SQ SCH ×4 (07:51→20:37)
[2019-03-08] MEDS: Isosorbide MONOnitrate (24 HR) 30 MG TAB.ER.24H PO SCH (07:51)
[2019-03-08] MEDS: cloNIDine HCl 0.1 MG TABLET PO SCH ×3 (07:52→20:37)
[2019-03-08] MEDS ORDERED: Loratadine 10 MG TABLET PO SCH (09:00)
[2019-03-08] MEDS ORDERED: Isosorbide MONOnitrate (24 HR) 30 MG TAB.ER.24H PO SCH (09:00)
[2019-03-08] MEDS ORDERED: Insulin Regular, Human 100 UNIT/ML SQ SCH (09:00)
[2019-03-08] MEDS ORDERED: *HR* Rivaroxaban 10 MG TABLET PO SCH (09:00)
[2019-03-08] MEDS ORDERED: Diltiazem CD (24hr) 120 MG CAPSULE PO SCH (09:00)
[2019-03-08] MEDS ORDERED: Aspirin Enteric Coated 81 MG Tablet PO SCH (09:00)
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
--- NOTE | 2019-03-08 16:50 | Electrocardiograph Report ---
[place] [id number] Test Date: 2019-03-07 Pat Name: Christian Hughes Department: EDP-14 Room: [facility] Gender: M Director Of Food And Nutrition: : 1965 Requested By: Teresita Dubon Order Number: [id number] Reading MD: Mikhail Marroquin Measurements Intervals Bruno Rate: 78 P: OR: QRS: -20 QRSD: 121 T: 71 QT: 389 QTc: 444 Interpretive Statements Atrial fibrillation Nonspecific intraventricular conduction delay Borderline repol abnormality, diffuse leads Electronically Signed On 03-08-2019 16:48:04 EDT by Mikhail Marroquin
[2019-03-08] MEDS: Furosemide 40 MG/4 ML VIAL IVP SCH (17:23)
[2019-03-09 06:08] LABS: Basophils % 0.4 %; Eosinophils # 0.2 K/mcL (0.0-0.6); Eosinophils % 1.8 %; Hematocrit 35.7 % (37.5-50.1); Hemoglobin 11.1 g/dL (12.9-16.9); Immature Granulocytes % 0.3 % (0-4); Lymphocytes # 1.4 K/mcL (0.6-4.6); Lymphocytes % 13.7 %; Mean Corpuscular HGB Conc 31.1 g/dL (31.6-35.5); Mean Corpuscular Volume 77.1 fL (83.0-100.0); Mean Platelet Volume 10.4 fL (9.4-12.4); Monocytes # 0.7 K/mcL (0.0-1.3); Monocytes % 6.6 %; Neutrophils # 8.1 K/mcL (1.6-8.9); Platelet Count 234 K/mcL (140-400); Red Blood Count 4.63 M/mcL (4.19-5.50); Red Cell Distribution Width 16.4 % (11.5-14.5); Segmented Neutrophils % 77.2 %
[2019-03-09 06:36] LABS: Calcium 9.4 mg/dL (8.6-10.3); Potassium 4.6 mEq/L (3.5-5.1)
[2019-03-09 08:05] VITALS: BP 121/55
[2019-03-09] MEDS: Insulin LISPRO 300 UNITS/3 ML VIAL SQ SCH (09:15)
[2019-03-09] MEDS: Furosemide 40 MG/4 ML VIAL IVP SCH (09:16)
[2019-03-09] MEDS: Aspirin Enteric Coated 81 MG Tablet PO SCH (09:19)
[2019-03-09] MEDS: Loratadine 10 MG TABLET PO SCH (09:19)
[2019-03-09] MEDS: *HR* Rivaroxaban 10 MG TABLET PO SCH (09:19)
[2019-03-09] MEDS: Isosorbide MONOnitrate (24 HR) 30 MG TAB.ER.24H PO SCH (09:19)
[2019-03-09] MEDS: Diltiazem CD (24hr) 120 MG CAPSULE PO SCH (09:19)
[2019-03-09] MEDS: cloNIDine HCl 0.1 MG TABLET PO SCH (09:19)
[2019-03-09 10:10] LABS: Folate 13.3 ng/mL (3.0-16.0)
[2019-03-09] MEDS ORDERED: Cyanocobalamin (B-12) 1,000 MCG/ML VIAL IM ONE (10:55)
--- NOTE | 2019-03-09 11:03 | Discharge Summary ---
Orders not resulted at time of discharge: Pending orders 03/09/19 04:35 Hgb A1C AM 0400 Zinc AM 0400 Date of Encounter: 03/09/19 Time of Encounter: 10:55 - Discharge Diagnosis (1) Congestive heart failure Priority: Primary Status: Chronic Qualifiers: Heart failure type: right-sided Heart failure chronicity: acute on chronic Qualified Code(s): I50.813 - Acute on chronic right heart failure (2) Atrial fibrillation Priority: Secondary Status: Chronic Qualifiers: Atrial fibrillation type: paroxysmal Qualified Code(s): I48.0 - Paroxysmal atrial fibrillation (3) Chronic kidney disease, stage III (moderate) Priority: Secondary Status: Chronic (4) Anemia Priority: Secondary Status: Acute Qualifiers: Anemia type: unspecified type Qualified Code(s): D64.9 - Anemia, unspecified (5) Hypertension Priority: Secondary Status: Chronic Qualifiers: Hypertension type: essential hypertension Qualified Code(s): I10 - Essential (primary) hypertension (6) Hyperkalemia Priority: Secondary Status: Resolved Hospital course: Mr. Hughes is a 53 year old male who came to emergency room with increasing dyspnea over the past week stating he had been out of Lasix. He he states his PCP office did not refill hiis prescription as he anticipated. He was evaluated in emergency room and was felt to have exacerbation of heart failure. He was admitted to [facility] for ongoing care needs. Initial orders were written by the emergency room physician. I saw him on March 08 and performed a history and physical. He was started on IV Lasix. He had good diuresis and had symptomatic improvement by the following day. He will continue oral Lasix at discharge as previously prescribed. Anemia testing showed iron 41, transferrin saturation 14%, transferrin 209, ferritin 104, B12 236, and folate 13.3. He was given a B12 injection prior to discharge. He will start oral B12 supplement as well as ferrous sulfate and ascorbic acid daily at home. His PCP can monitor labs. Vitamin D level returned low at 10. He was started on vitamin D 2000 international units daily at discharge. Potassium normalized to 4.6 by day of discharge. Creatinine eduar slightly to 2.11. His PCP can monitor renal indices. On March 09 he felt improved and stable for discharge home. He will follow with his PCP Raisa Warner CNP within 1 week. - Time Spent with Patient Total time spent providing and/or coordinating discharge services: - Discharge Medications Prescriptions: New Ascorbic Acid [Vitamin C] 500 mg PO DAILY #30 capsule Cyanocobalamin (B-12) [Vitamin B12] 1,000 mcg PO DAILY #30 tablet Ferrous Sulfate 325 mg PO DAILY #30 tablet Cholecalciferol (D-3) [Vitamin D] 2,000 unit PO DAILY #60 tablet Continue Diltiazem CD (24hr) [Cardizem CD] 120 mg PO DAILY #30 tab Isosorbide MONOnitrate (24 HR) [Imdur] 30 mg PO DAILY #30 tab Cetirizine HCl [Zyrtec] 10 mg PO DAILY cloNIDine HCl [CloNIDine HCl] 0.1 mg PO TID Metoprolol [Lopressor] 25 mg PO BID Atorvastatin [Lipitor] 40 mg PO HS Aspirin [Lo-Dose Aspirin EC] 81 mg PO QAM Rivaroxaban [Xarelto] 20 mg PO DAILY Insulin Human Regular [HumuLIN R] 80 unit SQ BID Lisinopril [Zestril] 10 mg PO DAILY Fluticasone/Vilanterol [Breo Ellipta 100-25 Mcg INH] 1 each IH DAILY Furosemide [Lasix] 40 mg PO DAILY #30 tablet Discontinued Ferrous Sulfate 325 mg PO QMWF Home Medications: Aspirin [Lo-Dose Aspirin EC] 81 mg PO QAM 07/11/16 [History] Atorvastatin [Lipitor] 40 mg PO HS 07/11/16 [History] Diltiazem CD (24hr) [Cardizem CD] 120 mg PO DAILY #30 tab 07/07/17 [Rx] Isosorbide MONOnitrate (24 HR) [Imdur] 30 mg PO DAILY #30 tab 07/07/17 [Rx] Rivaroxaban [Xarelto] 20 mg PO DAILY 08/22/17 [History] Cetirizine HCl [Zyrtec] 10 mg PO DAILY 09/07/17 [History] cloNIDine HCl [CloNIDine HCl] 0.1 mg PO TID 04/17/18 [History] Metoprolol [Lopressor] 25 mg PO BID 04/23/18 [History] Insulin Human Regular [HumuLIN R] 80 unit SQ BID 12/25/18 [History] Fluticasone/Vilanterol [Breo Ellipta 100-25 Mcg INH] 1 each IH DAILY 03/07/19 [History] Lisinopril [Zestril] 10 mg PO DAILY 03/07/19 [History] Ascorbic Acid [Vitamin C] 500 mg PO DAILY #30 capsule 03/09/19 [Rx] Cholecalciferol (D-3) [Vitamin D] 2,000 unit PO DAILY #60 tablet 03/09/19 [Rx] Cyanocobalamin (B-12) [Vitamin B12] 1,000 mcg PO DAILY #30 tablet 03/09/19 [Rx] Ferrous Sulfate 325 mg PO DAILY #30 tablet 03/09/19 [Rx] Furosemide [Lasix] 40 mg PO DAILY #30 tablet 03/09/19 [Rx] Allergies/Adverse Reactions: Allergy/AdvReac Type Severity Reaction Status Date / Time No Known Allergies Allergy Verified 01/11/19 14:14 Date of admission: 03/07/19 19:59 Primary care physician: Raisa Warner CNP Consults: 03/07/19 22:29 Consult to Eyeglass Fitter [CONS] Routine Reason for SW Consult: discharge planning - Constitutional Vitals: Temp Pulse Resp BP Pulse Ox 98.3 F 73 17 121/55 94 03/09/19 08:04 03/09/19 08:04 03/09/19 00:11 03/09/19 08:04 03/09/19 09:49 - Patient Status Disposition: Home, Self-Care - Discharge Instructions Follow Up With: Raisa Warner, EARLY CHILDHOOD EDUCATOR AIDE [Advanced Practice Nurse] - 1 week - Diet and Activity Activity: resume usual activities as tolerated Diet: diabetic diet - VTE Reasons for not Prescribing Prophylaxis: Not indicated-Anticoagulated or INR therapeutic
[2019-03-09 11:27] LABS: Estimated Average Glucose 240 mg/dl
[2019-03-10] MEDS ORDERED: *HR* Rivaroxaban 15 MG TABLET PO SCH (17:00)
== END 2019-03-09 12:29 | disposition home or self-care (01) ==
LOC: INPPIK 16:49 → EMEROOPIK 16:49 → INPPIK 20:56
PROVIDERS: ADMIT Internal Medicine; ATTEND Internal Medicine

== ENCOUNTER 2019-12-26 12:46 | Inpatient (IN) ==
[2019-12-26] MEDS ORDERED: Ipratropium/Albuterol Neb 3 ML IH ONE (13:13)
[2019-12-26] MEDS ORDERED: Furosemide 40 MG/4 ML VIAL IVP ONE (13:13)
[2019-12-26 13:44] LABS: Basophils % 0.2 %; Eosinophils % 0.3 %; Hematocrit 34.4 % (37.5-50.1); Hemoglobin 10.8 g/dL (12.9-16.9); Immature Granulocytes % 0.4 % (0-4); Lymphocytes # 0.7 K/mcL (0.6-4.6); Lymphocytes % 6.7 %; Mean Corpuscular HGB Conc 31.4 g/dL (31.6-35.5); Mean Corpuscular Hemoglobin 23.5 pg (28.0-33.3); Mean Corpuscular Volume 74.9 fL (83.0-100.0); Mean Platelet Volume 8.9 fL (9.4-12.4); Monocytes % 10.4 %; Platelet Count 259 K/mcL (140-400); Red Blood Count 4.59 M/mcL (4.19-5.50); Red Cell Distribution Width 15.9 % (11.5-14.5); White Blood Count 9.8 K/mcL (4.3-11.1)
[2019-12-26 13:53] LABS: INR 1.8; Prothrombin Time 20.4 Seconds (9.4-12.1)
[2019-12-26 13:56] LABS: Activated Partial Thrombo Time 41.4 Seconds (26.0-36.0)
[2019-12-26 14:05] LABS: Albumin 3.5 g/dL (3.5-5.7); Albumin/Globulin Ratio 0.9 (1.1-2.2); Bilirubin,Direct 0.3 mg/dL (0.0-0.2); Bilirubin,Indirect 0.4 mg/dL (0.0-1.0); Bilirubin,Total 0.7 mg/dL (0.3-1.0); Calcium 9.1 mg/dL (8.6-10.3); Globulin 3.9 g/dL (2.4-3.5); Potassium 4.2 mEq/L (3.5-5.1); Total Protein 7.4 g/dL (6.4-8.9)
[2019-12-26 14:06] LABS: Troponin I 0.05 ng/mL (< 0.04)
[2019-12-26] MEDS ORDERED: MOM Conc 10 ML UD.LIQ PO PRN (16:20)
[2019-12-26] MEDS ORDERED: Mag Hydrox/Al Hydrox/Simeth 30 ML UDC PO PRN (16:20)
[2019-12-26] MEDS ORDERED: Ondansetron 4 MG/2 ML VIAL IVP PRN (16:20)
[2019-12-26] MEDS ORDERED: Naloxone 0.4 MG/ML INJ IVP PRN (16:20)
[2019-12-26] MEDS ORDERED: D5% in Water 1,000 ML IVC PRN (16:26)
[2019-12-26] MEDS ORDERED: Dextrose Gel 15 GM/37.5 ML TUBE PO PRN ×2 (16:26)
[2019-12-26] MEDS ORDERED: *HR* Dextrose 50 % in Water (Vial) 50 ML VIAL IVP PRN (16:26)
[2019-12-26] MEDS ORDERED: Bisacodyl 10 MG RECTAL SUPPOSITORY RC PRN (16:31)
[2019-12-26] MEDS ORDERED: Lactulose Oral Soln 20 GM/30 ML UDC PO ONE (16:31)
[2019-12-26] MEDS: Furosemide 40 MG/4 ML VIAL IVP SCH (18:15)
[2019-12-26] MEDS: Insulin LISPRO 300 UNITS/3 ML VIAL SQ SCH ×2 (18:17→19:54)
[2019-12-26] MEDS: cefTRIAXone 2,000 MG in Water for inj. (sterile) 20 ML IVPB SCH (18:29)
[2019-12-26] MEDS: Azithromycin 500 MG in 0.9 % Sodium Chloride 250 ML IVPB SCH (18:30)
[2019-12-26] MEDS: Gabapentin 100 MG CAPSULE PO SCH (19:54)
[2019-12-26] MEDS: cloNIDine HCl 0.1 MG TABLET PO SCH (19:54)
[2019-12-26] MEDS: Ipratropium/Albuterol Neb 3 ML IH SCH (20:53)
[2019-12-26] MEDS: Budesonide/Formoterol 160/4.5 1 PUFF INH IH SCH (21:06)
[2019-12-26 21:25] LABS: Estimated Average Glucose 298 mg/dl
[2019-12-27] MEDS: Ipratropium/Albuterol Neb 3 ML IH SCH ×6 (00:30→20:20)
[2019-12-27 03:08] LABS: Adenovirus Not Detected (Not Detect); Bordetella Pertussis Not Detected (Not Detect); Chlamydophila pneumoniae Not Detected (Not Detect); Coronavirus 229E Not Detected (Not Detect); Coronavirus HKU1 DETECTED (Not Detect); Coronavirus NL63 Not Detected (Not Detect); Coronavirus OC43 Not Detected (Not Detect); Human Metapneumovirus Not Detected (Not Detect); Human Rhinovirus/Enterovirus Not Detected (Not Detect); Influenza A Subtype 2009 H1 Not Detected (Not Detect); Influenza B Not Detected (Not Detect); Mycoplasma pneumoniae Not Detected (Not Detect); Parainfluenza Virus 1 Not Detected (Not Detect); Parainfluenza Virus 2 Not Detected (Not Detect); Parainfluenza Virus 3 Not Detected (Not Detect); Parainfluenza Virus 4 Not Detected (Not Detect); Respiratory Syncytial Virus DETECTED (Not Detect)
[2019-12-27 07:16] LABS: Basophils % 0.3 %; Eosinophils # 0.1 K/mcL (0.0-0.6); Eosinophils % 1.9 %; Hematocrit 33.5 % (37.5-50.1); Hemoglobin 10.3 g/dL (12.9-16.9); Immature Granulocytes % 0.3 % (0-4); Lymphocytes % 15.6 %; Mean Corpuscular HGB Conc 30.7 g/dL (31.6-35.5); Mean Corpuscular Hemoglobin 23.3 pg (28.0-33.3); Mean Corpuscular Volume 75.6 fL (83.0-100.0); Mean Platelet Volume 8.9 fL (9.4-12.4); Monocytes # 0.9 K/mcL (0.0-1.3); Monocytes % 14.1 %; Neutrophils # 4.4 K/mcL (1.6-8.9); Platelet Count 222 K/mcL (140-400); Red Blood Count 4.43 M/mcL (4.19-5.50); Red Cell Distribution Width 15.8 % (11.5-14.5); Segmented Neutrophils % 67.8 %; White Blood Count 6.5 K/mcL (4.3-11.1)
[2019-12-27 07:49] LABS: Albumin/Globulin Ratio 0.8 (1.1-2.2); Bilirubin,Total 0.4 mg/dL (0.3-1.0); Calcium 8.6 mg/dL (8.6-10.3); Chol/HDL Ratio 3.2 (0-4.9); Globulin 3.6 g/dL (2.4-3.5); Magnesium 2.1 mg/dL (1.6-2.6); Potassium 3.8 mEq/L (3.5-5.1); Total Protein 6.6 g/dL (6.4-8.9)
[2019-12-27] MEDS ORDERED: Lactulose Oral Soln 20 GM/30 ML UDC PO ONE (07:55)
[2019-12-27] MEDS: Budesonide/Formoterol 160/4.5 1 PUFF INH IH SCH ×2 (08:25→21:22)
[2019-12-27] MEDS: Aspirin Enteric Coated 81 MG Tablet PO SCH (08:45)
[2019-12-27] MEDS: Loratadine 10 MG TABLET PO SCH (08:45)
[2019-12-27] MEDS: Furosemide 40 MG/4 ML VIAL IVP SCH (08:45)
[2019-12-27] MEDS: cloNIDine HCl 0.1 MG TABLET PO SCH ×3 (08:45→19:53)
[2019-12-27] MEDS: DilTIAZem CD (24hr) 120 MG CAP.ER.24H PO SCH (08:45)
[2019-12-27] MEDS: Cyanocobalamin (B-12) 1,000 MCG TABLET PO SCH (08:46)
[2019-12-27] MEDS: Gabapentin 100 MG CAPSULE PO SCH ×3 (08:46→19:53)
[2019-12-27] MEDS: *HR* Rivaroxaban 10 MG TABLET PO SCH (08:46)
[2019-12-27] MEDS: Insulin LISPRO 300 UNITS/3 ML VIAL SQ SCH ×4 (08:48→19:54)
[2019-12-27] MEDS ORDERED: NON-FORMULARY MEDICATION 1 EACH EACH (Fluticasone/Vilanterol [Breo Ellipta 100-25 Mcg Inh] IH SCH (09:00)
[2019-12-27] MEDS: MethylPREDNISolone 40 MG/ML VIAL IVP SCH ×3 (11:21→23:03)
[2019-12-27] MEDS ORDERED: Perflutren Lipid Microsphere 1.3 ML in 0.9 % Sodium Chloride 8.7 ML IVP ONE (15:02)
[2019-12-27] MEDS: Azithromycin 500 MG in 0.9 % Sodium Chloride 250 ML IVPB SCH (17:47)
[2019-12-27] MEDS: cefTRIAXone 2,000 MG in Water for inj. (sterile) 20 ML IVPB SCH (17:48)
[2019-12-28] MEDS: Ipratropium/Albuterol Neb 3 ML IH SCH ×6 (00:26→20:33)
[2019-12-28] MEDS: MethylPREDNISolone 40 MG/ML VIAL IVP SCH ×3 (05:16→23:35)
[2019-12-28 06:57] LABS: Hematocrit 38.3 % (37.5-50.1); Hemoglobin 11.7 g/dL (12.9-16.9); Mean Corpuscular HGB Conc 30.5 g/dL (31.6-35.5); Mean Corpuscular Hemoglobin 23.2 pg (28.0-33.3); Mean Corpuscular Volume 75.8 fL (83.0-100.0); Mean Platelet Volume 9.7 fL (9.4-12.4); Platelet Count 322 K/mcL (140-400); Red Blood Count 5.05 M/mcL (4.19-5.50); Red Cell Distribution Width 15.9 % (11.5-14.5)
[2019-12-28 07:07] LABS: Calcium 9.2 mg/dL (8.6-10.3); Potassium 4.5 mEq/L (3.5-5.1)
[2019-12-28] MEDS: Budesonide/Formoterol 160/4.5 1 PUFF INH IH SCH ×2 (07:48→20:33)
[2019-12-28] MEDS: *HR* Rivaroxaban 10 MG TABLET PO SCH (08:24)
[2019-12-28] MEDS: Cyanocobalamin (B-12) 1,000 MCG TABLET PO SCH (08:24)
[2019-12-28] MEDS: Aspirin Enteric Coated 81 MG Tablet PO SCH (08:24)
[2019-12-28] MEDS: DilTIAZem CD (24hr) 120 MG CAP.ER.24H PO SCH (08:24)
[2019-12-28] MEDS: cloNIDine HCl 0.1 MG TABLET PO SCH ×3 (08:24→20:54)
[2019-12-28] MEDS: Gabapentin 100 MG CAPSULE PO SCH ×3 (08:24→20:54)
[2019-12-28] MEDS: Loratadine 10 MG TABLET PO SCH (08:24)
[2019-12-28] MEDS: Insulin LISPRO 300 UNITS/3 ML VIAL SQ SCH ×5 (08:25→20:52)
[2019-12-28] MEDS ORDERED: Insulin DETEMIR 100 UNIT/ML X5UNITS SQ SCH ×2 (12:29→21:00)
[2019-12-28] MEDS ORDERED: Insulin LISPRO 300 UNITS/3 ML VIAL SQ ONE (13:33)
[2019-12-28] MEDS: Insulin DETEMIR 100 UNIT/ML X5UNITS SQ SCH ×2 (13:57→20:51)
[2019-12-28 14:10] LABS: Calcium 8.8 mg/dL (8.6-10.3); Potassium 4.9 mEq/L (3.5-5.1)
[2019-12-28] MEDS: cefTRIAXone 2,000 MG in Water for inj. (sterile) 20 ML IVPB SCH (17:08)
[2019-12-28] MEDS: Azithromycin 500 MG in 0.9 % Sodium Chloride 250 ML IVPB SCH (17:09)
[2019-12-28] MEDS ORDERED: MethylPREDNISolone 40 MG/ML VIAL IVP SCH (18:00)
[2019-12-28] MEDS: Furosemide 20 MG/2 ML VIAL IVP SCH (21:00)
[2019-12-29] MEDS: Ipratropium/Albuterol Neb 3 ML IH SCH ×7 (00:24→23:22)
[2019-12-29] MEDS: Cyanocobalamin (B-12) 1,000 MCG TABLET PO SCH (08:14)
[2019-12-29] MEDS: Loratadine 10 MG TABLET PO SCH (08:14)
[2019-12-29] MEDS: Gabapentin 100 MG CAPSULE PO SCH ×3 (08:14→20:05)
[2019-12-29] MEDS: cloNIDine HCl 0.1 MG TABLET PO SCH ×3 (08:14→20:05)
[2019-12-29] MEDS: Aspirin Enteric Coated 81 MG Tablet PO SCH (08:14)
[2019-12-29] MEDS: DilTIAZem CD (24hr) 120 MG CAP.ER.24H PO SCH (08:15)
[2019-12-29] MEDS: Furosemide 20 MG/2 ML VIAL IVP SCH ×2 (08:15→16:44)
[2019-12-29] MEDS: *HR* Rivaroxaban 15 MG TABLET PO SCH (08:15)
[2019-12-29] MEDS: Insulin LISPRO 300 UNITS/3 ML VIAL SQ SCH ×7 (08:20→20:06)
[2019-12-29] MEDS: Insulin DETEMIR 100 UNIT/ML X5UNITS SQ SCH ×2 (08:21→20:05)
[2019-12-29] MEDS: Budesonide/Formoterol 160/4.5 1 PUFF INH IH SCH ×2 (08:28→19:44)
[2019-12-29 10:38] LABS: Hematocrit 35.8 % (37.5-50.1); Hemoglobin 11.4 g/dL (12.9-16.9); Mean Corpuscular HGB Conc 31.8 g/dL (31.6-35.5); Mean Corpuscular Hemoglobin 23.8 pg (28.0-33.3); Mean Corpuscular Volume 74.9 fL (83.0-100.0); Mean Platelet Volume 9.5 fL (9.4-12.4); Platelet Count 333 K/mcL (140-400); Red Blood Count 4.78 M/mcL (4.19-5.50); Red Cell Distribution Width 15.9 % (11.5-14.5); White Blood Count 21.7 K/mcL (4.3-11.1)
[2019-12-29 10:43] LABS: Calcium 9.1 mg/dL (8.6-10.3); Potassium 4.7 mEq/L (3.5-5.1)
[2019-12-29] MEDS: MethylPREDNISolone 40 MG/ML VIAL IVP SCH (11:36)
[2019-12-29] MEDS: Azithromycin 500 MG in 0.9 % Sodium Chloride 250 ML IVPB SCH (16:44)
[2019-12-29] MEDS: cefTRIAXone 2,000 MG in Water for inj. (sterile) 20 ML IVPB SCH (16:45)
[2019-12-30] MEDS: MethylPREDNISolone 40 MG/ML VIAL IVP SCH (00:32)
[2019-12-30] MEDS: Ipratropium/Albuterol Neb 3 ML IH SCH ×5 (03:42→20:19)
[2019-12-30 06:39] LABS: Hematocrit 35.6 % (37.5-50.1); Hemoglobin 11.2 g/dL (12.9-16.9); Mean Corpuscular HGB Conc 31.5 g/dL (31.6-35.5); Mean Corpuscular Hemoglobin 23.7 pg (28.0-33.3); Mean Corpuscular Volume 75.3 fL (83.0-100.0); Mean Platelet Volume 9.1 fL (9.4-12.4); Platelet Count 284 K/mcL (140-400); Red Blood Count 4.73 M/mcL (4.19-5.50); Red Cell Distribution Width 15.9 % (11.5-14.5); White Blood Count 16.1 K/mcL (4.3-11.1)
[2019-12-30 07:26] LABS: Calcium 8.7 mg/dL (8.6-10.3)
[2019-12-30] MEDS: Budesonide/Formoterol 160/4.5 1 PUFF INH IH SCH ×2 (07:58→20:19)
[2019-12-30] MEDS: DilTIAZem CD (24hr) 120 MG CAP.ER.24H PO SCH (08:12)
[2019-12-30] MEDS: Aspirin Enteric Coated 81 MG Tablet PO SCH (08:12)
[2019-12-30] MEDS: Furosemide 20 MG/2 ML VIAL IVP SCH (08:12)
[2019-12-30] MEDS: Loratadine 10 MG TABLET PO SCH (08:12)
[2019-12-30] MEDS: *HR* Rivaroxaban 15 MG TABLET PO SCH (08:12)
[2019-12-30] MEDS: Cyanocobalamin (B-12) 1,000 MCG TABLET PO SCH (08:12)
[2019-12-30] MEDS: cloNIDine HCl 0.1 MG TABLET PO SCH ×3 (08:12→19:41)
[2019-12-30] MEDS: Lisinopril 20 MG TABLET PO SCH (08:12)
[2019-12-30] MEDS: Gabapentin 100 MG CAPSULE PO SCH ×3 (08:12→19:41)
[2019-12-30] MEDS: Insulin DETEMIR 100 UNIT/ML X5UNITS SQ SCH ×2 (08:17→19:41)
[2019-12-30] MEDS: Insulin LISPRO 300 UNITS/3 ML VIAL SQ SCH ×7 (08:17→19:41)
[2019-12-30] MEDS ORDERED: Insulin DETEMIR 100 UNIT/ML X5UNITS SQ ONE (09:42)
[2019-12-30] MEDS: Furosemide 40 MG/4 ML VIAL IVP SCH (16:52)
[2019-12-30] MEDS: cefTRIAXone 2,000 MG in Water for inj. (sterile) 20 ML IVPB SCH (16:52)
[2019-12-30] MEDS: Azithromycin 500 MG in 0.9 % Sodium Chloride 250 ML IVPB SCH (16:52)
[2019-12-31] MEDS: Ipratropium/Albuterol Neb 3 ML IH SCH ×6 (00:39→20:28)
[2019-12-31 05:21] LABS: Hemoglobin 11.3 g/dL (12.9-16.9); Mean Corpuscular HGB Conc 31.4 g/dL (31.6-35.5); Mean Corpuscular Hemoglobin 23.5 pg (28.0-33.3); Mean Corpuscular Volume 74.8 fL (83.0-100.0); Mean Platelet Volume 9.1 fL (9.4-12.4); Platelet Count 278 K/mcL (140-400); Red Blood Count 4.81 M/mcL (4.19-5.50); Red Cell Distribution Width 15.8 % (11.5-14.5); White Blood Count 13.9 K/mcL (4.3-11.1)
[2019-12-31 05:42] LABS: Calcium 8.6 mg/dL (8.6-10.3); Potassium 4.2 mEq/L (3.5-5.1)
[2019-12-31] MEDS: Budesonide/Formoterol 160/4.5 1 PUFF INH IH SCH ×2 (07:54→20:28)
[2019-12-31] MEDS: Insulin DETEMIR 100 UNIT/ML X5UNITS SQ SCH ×2 (08:37→20:10)
[2019-12-31] MEDS: Furosemide 40 MG/4 ML VIAL IVP SCH ×2 (08:37→17:08)
[2019-12-31] MEDS: Insulin LISPRO 300 UNITS/3 ML VIAL SQ SCH ×7 (08:38→20:09)
[2019-12-31] MEDS: Loratadine 10 MG TABLET PO SCH (08:40)
[2019-12-31] MEDS: Lisinopril 20 MG TABLET PO SCH (08:40)
[2019-12-31] MEDS: DilTIAZem CD (24hr) 120 MG CAP.ER.24H PO SCH (08:40)
[2019-12-31] MEDS: predniSONE 20 MG TABLET PO SCH (08:40)
[2019-12-31] MEDS: Aspirin Enteric Coated 81 MG Tablet PO SCH (08:40)
[2019-12-31] MEDS: *HR* Rivaroxaban 15 MG TABLET PO SCH (08:40)
[2019-12-31] MEDS: cloNIDine HCl 0.1 MG TABLET PO SCH ×3 (08:40→19:58)
[2019-12-31] MEDS: Gabapentin 100 MG CAPSULE PO SCH ×3 (08:40→19:57)
[2019-12-31] MEDS: Cyanocobalamin (B-12) 1,000 MCG TABLET PO SCH (08:40)
[2019-12-31] MEDS: Azithromycin 500 MG in 0.9 % Sodium Chloride 250 ML IVPB SCH (17:17)
[2019-12-31] MEDS: cefTRIAXone 2,000 MG in Water for inj. (sterile) 20 ML IVPB SCH (17:22)
[2020-01-01] MEDS: Ipratropium/Albuterol Neb 3 ML IH SCH ×4 (00:26→08:05)
[2020-01-01] MEDS: Budesonide/Formoterol 160/4.5 1 PUFF INH IH SCH (08:05)
[2020-01-01] MEDS ORDERED: 0.9 % Sodium Chloride 250 ML IVC ONE (08:42)
[2020-01-01] MEDS: Insulin LISPRO 300 UNITS/3 ML VIAL SQ SCH ×6 (08:45→16:06)
[2020-01-01] MEDS: Furosemide 40 MG/4 ML VIAL IVP SCH ×2 (09:07→16:18)
[2020-01-01] MEDS: predniSONE 20 MG TABLET PO SCH (09:15)
[2020-01-01] MEDS: Aspirin Enteric Coated 81 MG Tablet PO SCH (09:15)
[2020-01-01] MEDS: Loratadine 10 MG TABLET PO SCH (09:15)
[2020-01-01] MEDS: Cyanocobalamin (B-12) 1,000 MCG TABLET PO SCH (09:15)
[2020-01-01] MEDS: Gabapentin 100 MG CAPSULE PO SCH ×2 (09:15→16:06)
[2020-01-01] MEDS: *HR* Rivaroxaban 15 MG TABLET PO SCH (09:15)
[2020-01-01] MEDS: DilTIAZem CD (24hr) 120 MG CAP.ER.24H PO SCH (09:15)
[2020-01-01] MEDS: cloNIDine HCl 0.1 MG TABLET PO SCH ×2 (09:15→16:18)
[2020-01-01] MEDS: Lisinopril 20 MG TABLET PO SCH (09:15)
[2020-01-01 09:31] LABS: Hematocrit 36.5 % (37.5-50.1); Hemoglobin 11.4 g/dL (12.9-16.9); Mean Corpuscular HGB Conc 31.2 g/dL (31.6-35.5); Mean Corpuscular Hemoglobin 23.6 pg (28.0-33.3); Mean Corpuscular Volume 75.4 fL (83.0-100.0); Mean Platelet Volume 9.2 fL (9.4-12.4); Platelet Count 293 K/mcL (140-400); Red Blood Count 4.84 M/mcL (4.19-5.50); Red Cell Distribution Width 15.9 % (11.5-14.5); White Blood Count 15.9 K/mcL (4.3-11.1)
[2020-01-01] MEDS: Insulin DETEMIR 100 UNIT/ML X5UNITS SQ SCH (09:34)
[2020-01-01 09:50] LABS: Calcium 8.6 mg/dL (8.6-10.3); Potassium 4.5 mEq/L (3.5-5.1)
[2020-01-01] MEDS ORDERED: Ipratropium/Albuterol Neb 3 ML IH PRN (09:53)
[2020-01-01 14:04] VITALS: BP 118/47
[2020-01-01] MEDS ORDERED: Azithromycin 500 MG in 0.9 % Sodium Chloride 250 ML IVPB SCH (15:31)
[2020-01-01] MEDS ORDERED: cefTRIAXone 2,000 MG in Water for inj. (sterile) 20 ML IVP SCH (15:32)
[2020-01-01] MEDS ORDERED: FLU Vac QV 19-20 (6Month+)/PF 0.5 ML SYRINGE IM ONE (18:38)
== END 2020-01-01 19:38 | disposition home or self-care (01) | DRG 194 ==
LOC: EMEROOPIK 12:46 → INPPIK 12:46
PROVIDERS: ADMIT Family Medicine; ATTEND Family Medicine